=== PATIENT | male | born 1930 | race Asian ===

== ENCOUNTER 2018-03-14 15:30 | Inpatient (IN) | payer MEDICARE, MEDICAID ==
--- NOTE | 2018-03-14 16:43 | ED Physician Chart ---
ED Chief Complaint/HPI - Patient Information Date Seen:: 03/14/18 Time Seen:: 16:00 Chief Complaint:: anxiety agitation History of Present Illness:: 87 yr old for increased agitation for geropsych eval pt denies any complaints Allergies:: Allergies Allergy/AdvReac Type Severity Reaction Status Date / Time No Known Allergies Allergy Verified 03/14/18 16:23 Vitals:: Vital Signs - 8 hr 03/14/18 16:17 Temp 98.3 F HR 67 RR 16 BP 127/61 O2 Sat % 98 ED Review of Systems - Review of Systems General/Constitutional: No fever, No chills, No weight loss, No weakness, No diaphoresis, No edema, No loss of appetite Skin: No skin lesions, No rash, No bruising Head: No headache, No light-headedness Eyes: No loss of vision, No pain, No diplopia ENT: No earache, No nasal drainage, No sore throat, No tinnitus Neck: No neck pain, No swelling, No thyromegaly, No stiffness, No mass noted Cardio Vascular: No chest pain, No palpitations, No PND, No orthopnea, No edema Pulmonary: No SOB, No cough, No sputum, No wheezing GI: No nausea, No vomiting, No diarrhea, No pain, No melena, No hematochezia, No constipation, No hematemesis G/U: No dysuria, No frequency, No hematuria Musculoskeletal: No bone or joint pain, No back pain, No muscle pain Endocrine: No polyuria, No polydipsia Psychiatric: No prior psych history, No depression, No anxiety, No suicidal ideation Hematopoietic: No bruising, No lymphadenopathy Allergic/Immuno: No urticaria, No angioedema Neurological: No syncope, No focal symptoms, No weakness, No paresthesia, No headache, No seizure, No dizziness, No confusion, No vertigo ED Past Medical History - Past Medical History Past Medical History: No significant medical hx Family Medical History - Family Member Mother History Unknown: Yes ED Assessment - Assessment General Assessment: anxiety agitation ED Septic Shock - . Is Septic Shock (SBP<90, OR Lactate>4 mmol\L) present?: No - <6hrs of presentation: Vital Signs: Vital Signs - 8 hr 03/14/18 16:17 Temp 98.3 F HR 67 RR 16 BP 127/61 O2 Sat % 98 ED Reassessment (Disposition) - Diagnosis Diagnosis:: anxiety agitation - Patient Disposition Discharge/Transfer:: Acute Care w/in this hosp Transport Method:: Private Condition at Disposition:: Stable
[2018-03-14 16:57] LABS: % BASOPHILS 0.4 % (0.0-2.0); % EOSINOPHILS 0.8 % (0.0-5.0); % LYMPHOCYTES 15.1 % (20.0-50.0); % MONOCYTES 2.4 % (2.0-10.0); % NEUTROPHILS 81.3 % (40.0-80.0); EOSINOPHILE ABSOLUTE 0.1 Th/cmm (0.1-0.4); HEMOGLOBIN 13.5 gm/dL (12-16); MEAN CELL VOLUME 100.2 fl (80-99); MEAN CORPUSCULAR HEMOGLOBIN 33.8 pg (27.0-31.0); MEAN CORPUSCULAR HGB CONC 33.7 pg (28.0-36.0); MEAN PLATELET VOLUME 7.8 fl; MONOCYTE ABSOLUTE 0.2 Th/cmm (0.3-1.0); NEUTROPHILE ABSOLUTE 5.4 Th/cmm (1.8-8.0); PLATELET COUNT 214 Th/cmm (150-400); RED CELL DISTRIBUTION WIDTH 12.2 % (11.5-20.0); WHITE BLOOD COUNT 6.7 Th/cmm (4.8-10.8)
[2018-03-14 17:11] LABS: ALB/GLOB RATIO 1.6 (1.0-1.8); ALBUMIN 4.6 gm/dL (4.2-5.5); ALKALINE PHOSPHATASE 59 U/L (34-104); ANION GAP 12.8 (7.0-16.0); BILIRUBIN,TOTAL 0.5 mg/dL (0.3-1.0); BUN - UREA NITROGEN 25 mg/dL (7-25); CARBON DIOXIDE 27.1 mEq/L (21.0-31.0); CHLORIDE 99 mEq/L (98-107); CREATININE - SERUM 1.2 mg/dL (0.7-1.3); GLUCOSE 114 mg/dL (70-105); POTASSIUM SERUM 4.9 mEq/L (3.5-5.1); SGOT 16 U/L (13-39); SGPT/ALT 10 U/L (7-52); SODIUM SERUM 134 mEq/L (136-145); TOTAL PROTEIN,SERUM 7.5 gm/dL (6.0-8.3)
[2018-03-14 17:41] LABS: URINE SOURCE CLEAN C
[2018-03-14 17:45] LABS: URINE BILIRUBIN NEGATIVE (NEGATIVE); URINE BLOOD TRACE (NEGATIVE); URINE GLUCOSE (UA) NEGATIVE (NEGATIVE); URINE KETONE 15 mg/dL (NEGATIVE); URINE LEUKOCYTE ESTERASE NEGATIVE (NEGATIVE); URINE MICROSCOPIC INDICATED? YES; URINE NITRATE NEGATIVE (NEGATIVE); URINE PROTEIN NEGATIVE (NEGATIVE); URINE UROBILINOGEN 0.2 E.U./dL (0.2 - 1.0)
[2018-03-14 17:50] LABS: URINE CLARITY CLEAR (CLEAR); URINE COLOR YELLOW
[2018-03-14 17:58] LABS: URINE WBC 0-2 /hpf (0-5)
[2018-03-14 17:59] LABS: AMPHETAMINE URINE NEGATIVE (NEGATIVE); BARBITURATES URINE NEGATIVE (NEGATIVE); BENZODIAZEPINES QUAL URINE NEGATIVE (NEGATIVE); CANNABINOID THC NEGATIVE (NEGATIVE); COCAINE METABOLITE QUAL URINE NEGATIVE (NEGATIVE); METHADONE URINE NEGATIVE (NEGATIVE); METHAMPHETAMINES QUAL URINE NEGATIVE (NEGATIVE); OPIATES (MORPHINE) QUAL. URINE NEGATIVE (NEGATIVE); PHENCYCLIDINE (PCP) URINE NEGATIVE (NEGATIVE); TRICYCLICS (TCA) QUAL. URINE NEGATIVE (NEGATIVE); URINE BACTERIA OCCASIONAL /hpf (NONE SEEN); URINE EPITHELIAL CELLS OCCASIONAL /lpf (FEW)
[2018-03-14 18:07] VITALS: BP 147/77
[2018-03-14] MEDS ORDERED: Magnesium Hydroxide (MOM) 30 mL UDC PO PRN (21:49)
--- NOTE | 2018-03-15 03:29 | Psychiatric Evaluation ---
DATE OF SERVICE: 03/14/2018 IDENTIFYING DATA: The patient is an 87-year-old male, resident of [facility]. Information obtained by interviewing the patient as well as reviewing the admission papers and it is reliable. JUSTIFICATION FOR HOSPITALIZATION: The patient is admitted here on a voluntary basis in view of his acute agitation and impulsive behavior. CHIEF COMPLAINT: "I don't know what they are talking about." HISTORY OF PRESENT ILLNESS: This is the first psychiatric hospitalization to [facility] for this patient who is reported to have been agitated at the halfway facility and could not be contained and the patient has to be admitted over here for stabilization. The patient has been at [facility] and has been getting easily agitated and aggressive towards the staff as well as other patients and could not be contained at a lower level of care. Review of the chart indicated that the patient has been on Ativan as p.r.n. doses and the patient is not able to contract for safety. At the time of the admission, the patient is getting easily frustrated, stating that he has told the same story again and he does not want to get more information. Sleep and appetite prior to the hospitalization are reported to be poor. PAST PSYCHIATRIC HISTORY: None. MEDICAL HISTORY: Physical examination is requested to be done by Dr. Moe. SUBSTANCE ABUSE HISTORY: None. PHYSICAL OR SEXUAL ABUSE HISTORY: None. LEGAL PROBLEMS: None at this time. MENTAL STATUS EXAMINATION: The patient is an 87-year-old, looking his stated age, wheelchair bound, superficially cooperative. Eye contact is poor. Mood is noted to be irritable. Affect is constricted. The patient is getting easily frustrated. The patient has paranoia, but denies any command hallucinations. The patient has short-term memory deficits and long-term memory seems to be fair so far. Insight and judgment are noted to be very much impaired. Impulse control is noted to be poor. Coping skills are noted to be very poor. The patient is reported to have been having a difficulty to cope with the stress and has been getting out of control. The patient is not able to contract for safety. The patient's attention span and concentration are noted to be poor at this time. The patient's behavior is likely danger to others. 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 AXIS II: None. AXIS III: As per Dr. Moe. IMMEDIATE TREATMENT PLAN: The patient is going to be observed on inpatient unit, provided with supportive psychotherapy. The patient is going to be closely monitored. Once stabilized, the patient is going to be discharged back to the [facility] or [facility] for further followup. JOB# [id number]
[2018-03-15] MEDS: Multivitamin Tab PO SCH (08:36)
--- NOTE | 2018-03-15 09:33 | History & Physical ---
ADMIT DATE: 03/14/2018 CHIEF COMPLAINT: Agitation. HISTORY OF PRESENT ILLNESS: This is an 87-year-old male who was admitted through the Emergency Room [facility] from a senior living facility due to increase in agitation to staffs. REVIEW OF SYSTEMS: GENERAL: This is an 87-year-old male that appears as stated. Denies any weakness. Denies any weight loss. HEENT: Denies any headache. Denies dizziness. EYES: Denies eye pain. Denies blurring of vision. NECK: Denies neck pain. Denies nuchal rigidity. CHEST: Denies chest pain. Denies palpitation. PULMONARY: Denies coughing. Denies shortness of breath. GASTROINTESTINAL: Denies abdominal pain. Denies constipation. Denies diarrhea. MUSCULOSKELETAL: Denies muscle pain. Denies joint pain. SOCIAL HISTORY: The patient denies nicotine use, alcohol use, or illicit drug use. The patient lives in a senior living facility prior to hospitalization. PAST MEDICAL HISTORY: Includes osteoarthritis and hypertension. PAST SURGICAL HISTORY: Unremarkable. FAMILY HISTORY: Unremarkable. PSYCHIATRIC HISTORY: Includes dementia. PHYSICAL EXAMINATION: VITAL SIGNS: Temperature 97.7, heart rate of 79, respirations 20, blood pressure 114/72, and 97% on room air. HEENT: Head is atraumatic, normocephalic. Eyes: Bilateral conjunctivae are clear. Bilateral pupils are equally round and reactive. NECK: Supple. No JVD. CARDIOVASCULAR: S1 and S2, without murmur. PULMONARY: Clear to auscultation. GASTROINTESTINAL: Soft and nontender without guarding. Positive bowel sounds. MUSCULOSKELETAL: No clubbing. No cyanosis noted. ASSESSMENT: 1. Dementia. 2. Hypertension. 3. Osteoarthritis. 4. Anxiety. PLAN: We will admit the patient to Psychiatric Unit. We will follow up with psychiatrist to monitor the patient's condition and behavior. Treatment plans were discussed with the patient's nurse. Treatment plans were discussed with Dr. Moe. JOB# [id number]
--- NOTE | 2018-03-15 10:24 | Progress Notes ---
DATE: 03/15/2018 SUBJECTIVE: Staff was spoken to. The patient is interviewed. Mood is noted to be irritable. Affect is constricted. Insight and judgment at this time are noted to be still impaired. Impulse control is noted to be limited. Coping skills are noted to be limited. The patient has been placed on the Seroquel 12.5 mg at bedtime for his agitation and paranoia. The patient has been able to tolerate. No side effects to medications are noted at this time. ASSESSMENT: The patient is still grossly psychotic, impulsive and paranoid. PLAN: To continue the patient with the supportive therapy and followup. JOB# [id number]
--- NOTE | 2018-03-15 23:26 | Consultation ---
DATE OF CONSULTATION: 03/15/2018 REFERRING PHYSICIAN: Yolette Cuadra M.D. TYPE OF CONSULTATION: Psychology. HISTORY OF PRESENT ILLNESS: The patient is an 87-year-old male. The patient is a resident of [facility]. The following is by review of the medical record and by patient's self-report. The patient is being admitted due to acute agitation and poor impulse control. According to staff at the patient's nursing home facility the patient had become agitated and unredirectable as well as aggressive towards the staff and other residents. The patient denied this behavior and presented as confused and disoriented. The patient denied any suicidal ideation or homicidal ideation, plan or intention. PAST MEDICAL HISTORY: Please see history and physical by Dr. Moe. PAST PSYCHIATRIC HISTORY: Records are unavailable at the time of this clinical interview. SUBSTANCE ABUSE HISTORY: The patient did not answer this question. PSYCHOSOCIAL HISTORY: The patient did not answer questions about occupational or educational history or scientology affiliation. The patient did not answer questions about history of physical or sexual abuse or current legal problems. The patient did not answer questions about marital status, family relationships or support system. The patient was selectively mute during the clinical interview. MENTAL STATUS EXAMINATION: The patient appears to be his stated age. The patient's attitude is superficially cooperative. Eye contact is poor. Speech is slow and delayed. Mood is irritable. Affect is constricted. At times during the clinical interview, the patient would get easily frustrated. Thought process shows to be confused. The patient denied any suicidal ideation, plan or intention. There is possible paranoid ideation present. The patient's behavior has been fairly redirectable on the unit. Impulse control is poor. Concentration is poor. The patient did not participate in the memory assessment. The patient did not participate in any interpretation of proverbs. Sensorium is alert and oriented to self and place only. Insight is impaired. Judgment is impaired. DIAGNOSTIC IMPRESSION: AXIS I: 1. Psychotic disorder, not otherwise specified. 2. Dementia with behavioral disturbance. AXIS II: Deferred. AXIS III: Per Dr. Moe. TREATMENT PLAN: The patient has been seen by Dr. Cuadra for psychiatric evaluation and for the management of the patient's psychotropic medications. We will provide supportive psychotherapy to include reality orientation, reality differentiation and integration. We will provide the patient daily opportunities to verbally contract for safety to include no self-harm and no harm to others. We will encourage the patient to be able to demonstrate emotional and self-regulation and to verbalize his concerns versus acting out. We will provide coping strategies for phase of life issues. We will provide limit setting as well as cognitive behavioral redirection. We will provide motivational enhancement for the patient to become compliant and stay compliant with all aspects of his care and treatment. Thank you Dr. Cuadra for this consult and the opportunity to participate in this patient's care. JOB# [id number] KEVIN
[2018-03-16] MEDS: Multivitamin Tab PO SCH (08:42)
--- NOTE | 2018-03-16 19:31 | Progress Notes ---
DATE: 03/16/2018 PSYCHIATRIC PROGRESS NOTE SUBJECTIVE: Staff was spoken to. The patient is interviewed and noted to be irritable. Affect is constricted. Continues to be paranoid, agitation is a concern with the patient and impulsivity is another problem. No side effects to the medications are noted at this time. ASSESSMENT: The patient is still impulsive. PLAN: To continue the patient with the supportive therapy and encouraged the patient to verbalize the concerns rather than to act out. [facility]# [id number]
[2018-03-17] MEDS: Multivitamin Tab PO SCH (09:51)
--- NOTE | 2018-03-17 16:04 | General Progress Note ---
Subjective - Review of Systems Events since last encounter: in no distress still confused Objective - Results Result Diagrams: 03/14/18 16:50 03/14/18 16:50 Recent Labs: Laboratory Last Values WBC 6.7 Th/cmm (4.8-10.8) 03/14/18 16:50 RBC 4.00 Mil/cmm (3.80-5.80) 03/14/18 16:50 Hgb 13.5 gm/dL (12-16) 03/14/18 16:50 Hct 40.0 % (41.0-60) L 03/14/18 16:50 MCV 100.2 fl (80-99) H 03/14/18 16:50 MCH 33.8 pg (27.0-31.0) H 03/14/18 16:50 MCHC Differential 33.7 pg (28.0-36.0) 03/14/18 16:50 RDW 12.2 % (11.5-20.0) 03/14/18 16:50 Plt Count 214 Th/cmm (150-400) 03/14/18 16:50 MPV 7.8 fl 03/14/18 16:50 Neutrophils % 81.3 % (40.0-80.0) H 03/14/18 16:50 Lymphocytes % 15.1 % (20.0-50.0) L 03/14/18 16:50 Monocytes % 2.4 % (2.0-10.0) 03/14/18 16:50 Eosinophils % 0.8 % (0.0-5.0) 03/14/18 16:50 Basophils % 0.4 % (0.0-2.0) 03/14/18 16:50 Sodium 134 mEq/L (136-145) L 03/14/18 16:50 Potassium 4.9 mEq/L (3.5-5.1) 03/14/18 16:50 Chloride 99 mEq/L (98-107) 03/14/18 16:50 Carbon Dioxide 27.1 mEq/L (21.0-31.0) 03/14/18 16:50 Anion Gap 12.8 (7.0-16.0) 03/14/18 16:50 BUN 25 mg/dL (7-25) 03/14/18 16:50 Creatinine 1.2 mg/dL (0.7-1.3) 03/14/18 16:50 Est GFR ( Amer) TNP 03/14/18 16:50 Est GFR (Non-Af Amer) TNP 03/14/18 16:50 BUN/Creatinine Ratio 20.8 03/14/18 16:50 Glucose 114 mg/dL (70-105) H 03/14/18 16:50 Calcium 10.0 mg/dL (8.6-10.3) 03/14/18 16:50 Total Bilirubin 0.5 mg/dL (0.3-1.0) 03/14/18 16:50 AST 16 U/L (13-39) 03/14/18 16:50 ALT 10 U/L (7-52) 03/14/18 16:50 Alkaline Phosphatase 59 U/L (34-104) 03/14/18 16:50 Total Protein 7.5 gm/dL (6.0-8.3) 03/14/18 16:50 Albumin 4.6 gm/dL (4.2-5.5) 03/14/18 16:50 Globulin 2.9 gm/dL 03/14/18 16:50 Albumin/Globulin Ratio 1.6 (1.0-1.8) 03/14/18 16:50 Urine Source CLEAN C 03/14/18 17:01 Urine Color YELLOW 03/14/18 17:01 Urine Clarity CLEAR (CLEAR) 03/14/18 17:01 Urine pH 6.0 (4.6 - 8.0) 03/14/18 17:01 Ur Specific Ryan 1.025 (1.005-1.030) 03/14/18 17:01 Urine Protein NEGATIVE mg/dL (NEGATIVE) 03/14/18 17:01 Urine Glucose (UA) NEGATIVE mg/dL (NEGATIVE) 03/14/18 17:01 Urine Ketones 15 mg/dL (NEGATIVE) H 03/14/18 17:01 Urine Blood TRACE (NEGATIVE) 03/14/18 17:01 Urine Nitrate NEGATIVE (NEGATIVE) 03/14/18 17:01 Urine Bilirubin NEGATIVE (NEGATIVE) 03/14/18 17:01 Urine Urobilinogen 0.2 E.U./dL (0.2 - 1.0) 03/14/18 17:01 Ur Leukocyte Esterase NEGATIVE (NEGATIVE) 03/14/18 17:01 Urine RBC 2-5 /hpf (0-5) H 03/14/18 17:01 Urine WBC 0-2 /hpf (0-5) 03/14/18 17:01 Ur Epithelial Cells OCCASIONAL /lpf (FEW) 03/14/18 17:01 Urine Bacteria OCCASIONAL /hpf (NONE SEEN) 03/14/18 17:01 Urine Opiates Screen NEGATIVE (NEGATIVE) 03/14/18 17:01 Urine Methadone Screen NEGATIVE (NEGATIVE) 03/14/18 17:01 Ur Barbiturates Screen NEGATIVE (NEGATIVE) 03/14/18 17:01 Ur Tricyclics Screen NEGATIVE (NEGATIVE) 03/14/18 17:01 Ur Phencyclidine Scrn NEGATIVE (NEGATIVE) 03/14/18 17:01 Amphetamines Screen NEGATIVE (NEGATIVE) 03/14/18 17:01 U Methamphetamines Scrn NEGATIVE (NEGATIVE) 03/14/18 17:01 U Benzodiazepines Scrn NEGATIVE (NEGATIVE) 03/14/18 17:01 U Cocaine Metab Screen NEGATIVE (NEGATIVE) 03/14/18 17:01 U Cannabinoids Screen NEGATIVE (NEGATIVE) 03/14/18 17:01 - Physical Exam Vitals and I&O: Vital Signs Temp 98.7 F 03/17/18 15:40 Pulse 72 03/17/18 15:40 Resp 20 03/17/18 15:40 BP 92/54 03/17/18 15:40 Pulse Ox 98 03/17/18 15:40 Intake & Output 03/16/18 03/17/18 03/17/18 18:59 06:59 18:59 Intake Total 800 300 Balance 800 300 Intake: Oral 800 300 Other: # Voids 3 1 # Bowel Movements 1 0 Active Medications: Current Medications Acetaminophen (Tylenol) 325 mg PO Q6HR PRN PRN Reason: Pain (Mild) Stop: 05/13/18 21:48 Amlodipine Besylate (Norvasc) 5 mg PO DAILY MARA Stop: 05/14/18 08:59 Last Admin: 03/17/18 09:51 Dose: 5 mg Docusate Sodium (Colace) 100 mg PO BID MARA Stop: 05/14/18 08:59 Last Admin: 03/17/18 09:52 Dose: 100 mg Donepezil HCl (Aricept) 5 mg PO HS MARA Stop: 05/13/18 20:59 Last Admin: 03/16/18 20:40 Dose: 5 mg Lisinopril (Zestril) 5 mg PO DAILY MARA Stop: 05/14/18 08:59 Last Admin: 03/17/18 09:51 Dose: 5 mg Lorazepam (Ativan) 0.5 mg PO Q4HR PRN; Protocol PRN Reason: Anxiety Stop: 04/13/18 21:43 Last Admin: 03/17/18 09:51 Dose: 0.5 mg Magnesium Hydroxide (Milk Of Magnesia) 30 ml PO Q6HR PRN PRN Reason: Constipation Stop: 05/13/18 21:48 Memantine (Namenda) 5 mg PO HS MARA Stop: 05/13/18 20:59 Last Admin: 03/16/18 20:40 Dose: 5 mg Multivitamins/Vitamin C (Theragran) 1 tab PO DAILY MARA Stop: 05/14/18 08:59 Last Admin: 03/17/18 09:51 Dose: 1 tab Quetiapine Fumarate (Seroquel) 12.5 mg PO HS MARA; Protocol Stop: 05/14/18 20:59 Last Admin: 03/16/18 20:52 Dose: Not Given Zolpidem Tartrate (Ambien) 5 mg PO HSMR1 PRN PRN Reason: Insomnia Stop: 05/13/18 21:43
--- NOTE | 2018-03-18 02:21 | Progress Notes ---
DATE: 03/17/2018 SUBJECTIVE: Staff was spoken to. The patient is interviewed. Mood is noted to be irritable. Affect is constricted. The patient still has paranoid delusions. He denies any current hallucinations. Insight and judgment are noted to be impaired. The patient is complaining of insomnia. No side effects to the medications are noted. ASSESSMENT: The patient is still grossly psychotic and impulsive. PLAN: To continue the patient with the supportive therapy, increase the dose of Seroquel to 25 mg and follow the patient with supportive therapy. JOB# [id number]
[2018-03-18] MEDS: Multivitamin Tab PO SCH (18:17)
--- NOTE | 2018-03-19 00:38 | Progress Notes ---
DATE: 03/18/2018 Staff was spoken to. The patient is interviewed. Mood is noted to be anxious. The patient is isolated and withdrawn. Coping skill are noted to be still poor. Insight and judgment also noted to be limited. The patient is currently on Seroquel, which is being given at 25 mg at bedtime. The patient has been able to tolerate, no side effects to the medications are noted. The patient's short- and long-term memory noted to be poor. ASSESSMENT: The patient is demented and paranoid. PLAN: To continue the patient with supportive therapy and followup. JOB# [id number]
[2018-03-19] MEDS: Multivitamin Tab PO SCH (08:25)
--- NOTE | 2018-03-19 09:02 | General Progress Note ---
Subjective - Review of Systems Events since last encounter: patient awake paranoid,anxious ]confused Objective - Results Result Diagrams: 03/14/18 16:50 03/14/18 16:50 Recent Labs: Laboratory Last Values WBC 6.7 Th/cmm (4.8-10.8) 03/14/18 16:50 RBC 4.00 Mil/cmm (3.80-5.80) 03/14/18 16:50 Hgb 13.5 gm/dL (12-16) 03/14/18 16:50 Hct 40.0 % (41.0-60) L 03/14/18 16:50 MCV 100.2 fl (80-99) H 03/14/18 16:50 MCH 33.8 pg (27.0-31.0) H 03/14/18 16:50 MCHC Differential 33.7 pg (28.0-36.0) 03/14/18 16:50 RDW 12.2 % (11.5-20.0) 03/14/18 16:50 Plt Count 214 Th/cmm (150-400) 03/14/18 16:50 MPV 7.8 fl 03/14/18 16:50 Neutrophils % 81.3 % (40.0-80.0) H 03/14/18 16:50 Lymphocytes % 15.1 % (20.0-50.0) L 03/14/18 16:50 Monocytes % 2.4 % (2.0-10.0) 03/14/18 16:50 Eosinophils % 0.8 % (0.0-5.0) 03/14/18 16:50 Basophils % 0.4 % (0.0-2.0) 03/14/18 16:50 Sodium 134 mEq/L (136-145) L 03/14/18 16:50 Potassium 4.9 mEq/L (3.5-5.1) 03/14/18 16:50 Chloride 99 mEq/L (98-107) 03/14/18 16:50 Carbon Dioxide 27.1 mEq/L (21.0-31.0) 03/14/18 16:50 Anion Gap 12.8 (7.0-16.0) 03/14/18 16:50 BUN 25 mg/dL (7-25) 03/14/18 16:50 Creatinine 1.2 mg/dL (0.7-1.3) 03/14/18 16:50 Est GFR ( Amer) TNP 03/14/18 16:50 Est GFR (Non-Af Amer) TNP 03/14/18 16:50 BUN/Creatinine Ratio 20.8 03/14/18 16:50 Glucose 114 mg/dL (70-105) H 03/14/18 16:50 Calcium 10.0 mg/dL (8.6-10.3) 03/14/18 16:50 Total Bilirubin 0.5 mg/dL (0.3-1.0) 03/14/18 16:50 AST 16 U/L (13-39) 03/14/18 16:50 ALT 10 U/L (7-52) 03/14/18 16:50 Alkaline Phosphatase 59 U/L (34-104) 03/14/18 16:50 Total Protein 7.5 gm/dL (6.0-8.3) 03/14/18 16:50 Albumin 4.6 gm/dL (4.2-5.5) 03/14/18 16:50 Globulin 2.9 gm/dL 03/14/18 16:50 Albumin/Globulin Ratio 1.6 (1.0-1.8) 03/14/18 16:50 Urine Source CLEAN C 03/14/18 17:01 Urine Color YELLOW 03/14/18 17:01 Urine Clarity CLEAR (CLEAR) 03/14/18 17:01 Urine pH 6.0 (4.6 - 8.0) 03/14/18 17:01 Ur Specific [place] 1.025 (1.005-1.030) 03/14/18 17:01 Urine Protein NEGATIVE mg/dL (NEGATIVE) 03/14/18 17:01 Urine Glucose (UA) NEGATIVE mg/dL (NEGATIVE) 03/14/18 17:01 Urine Ketones 15 mg/dL (NEGATIVE) H 03/14/18 17:01 Urine Blood TRACE (NEGATIVE) 03/14/18 17:01 Urine Nitrate NEGATIVE (NEGATIVE) 03/14/18 17:01 Urine Bilirubin NEGATIVE (NEGATIVE) 03/14/18 17:01 Urine Urobilinogen 0.2 E.U./dL (0.2 - 1.0) 03/14/18 17:01 Ur Leukocyte Esterase NEGATIVE (NEGATIVE) 03/14/18 17:01 Urine RBC 2-5 /hpf (0-5) H 03/14/18 17:01 Urine WBC 0-2 /hpf (0-5) 03/14/18 17:01 Ur Epithelial Cells OCCASIONAL /lpf (FEW) 03/14/18 17:01 Urine Bacteria OCCASIONAL /hpf (NONE SEEN) 03/14/18 17:01 Urine Opiates Screen NEGATIVE (NEGATIVE) 03/14/18 17:01 Urine Methadone Screen NEGATIVE (NEGATIVE) 03/14/18 17:01 Ur Barbiturates Screen NEGATIVE (NEGATIVE) 03/14/18 17:01 Ur Tricyclics Screen NEGATIVE (NEGATIVE) 03/14/18 17:01 Ur Phencyclidine Scrn NEGATIVE (NEGATIVE) 03/14/18 17:01 Amphetamines Screen NEGATIVE (NEGATIVE) 03/14/18 17:01 U Methamphetamines Scrn NEGATIVE (NEGATIVE) 03/14/18 17:01 U Benzodiazepines Scrn NEGATIVE (NEGATIVE) 03/14/18 17:01 U Cocaine Metab Screen NEGATIVE (NEGATIVE) 03/14/18 17:01 U Cannabinoids Screen NEGATIVE (NEGATIVE) 03/14/18 17:01 - Physical Exam Vitals and I&O: Vital Signs Temp 97.6 F 03/19/18 06:37 Pulse 65 03/19/18 08:26 Resp 19 03/19/18 06:37 BP 123/66 03/19/18 08:26 Pulse Ox 97 03/19/18 06:37 Intake & Output 03/18/18 03/19/18 03/19/18 18:59 06:59 18:59 Intake Total 1350 360 Balance 1350 360 Weight (lbs) 56.699 kg Intake: Oral 1350 360 Other: # Voids 3 2 # Bowel Movements 0 0 Weight Source Bedscale Active Medications: Current Medications Acetaminophen (Tylenol) 325 mg PO Q6HR PRN PRN Reason: Pain (Mild) Stop: 05/13/18 21:48 Amlodipine Besylate (Norvasc) 5 mg PO DAILY [facility] Stop: 05/14/18 08:59 Last Admin: 03/19/18 08:25 Dose: 5 mg Docusate Sodium (Colace) 100 mg PO BID [facility] Stop: 05/14/18 08:59 Last Admin: 03/19/18 08:25 Dose: 100 mg Donepezil HCl (Aricept) 5 mg PO HS [facility] Stop: 05/13/18 20:59 Last Admin: 03/18/18 20:45 Dose: 5 mg Lisinopril (Zestril) 5 mg PO DAILY [facility] Stop: 05/14/18 08:59 Last Admin: 03/19/18 08:26 Dose: 5 mg Lorazepam (Ativan) 0.5 mg PO Q4HR PRN; Protocol PRN Reason: Anxiety Stop: 04/13/18 21:43 Last Admin: 03/18/18 17:54 Dose: 0.5 mg Magnesium Hydroxide (Milk Of Magnesia) 30 ml PO Q6HR PRN PRN Reason: Constipation Stop: 05/13/18 21:48 Memantine (Namenda) 5 mg PO [facility] Stop: 05/13/18 20:59 Last Admin: 03/18/18 20:45 Dose: 5 mg Multivitamins/Vitamin C (Theragran) 1 tab PO DAILY [facility] Stop: 05/14/18 08:59 Last Admin: 03/19/18 08:25 Dose: 1 tab Quetiapine Fumarate (Seroquel) 25 mg PO HS [facility]; Protocol Stop: 05/16/18 20:59 Last Admin: 03/18/18 20:45 Dose: 25 mg Zolpidem Tartrate (Ambien) 5 mg PO HSMR1 PRN PRN Reason: Insomnia Stop: 05/13/18 21:43 Nutritional Asmnt/Malnutr-PDOC - Dietary Evaluation Malnutrition Findings (Please click <Entered> for more info): Nutritional Asmnt/Malnutrition Start: 03/18/18 13: 17 Text: Status: Complete Freq: Protocol: Document 03/18/18 13:17 LCHENG (Rec: 03/18/18 13:23 [email or web address] [email or web address]) Nutritional Asmnt/Malnutrition Patient General Information Nutritional Screening Moderate Risk Diagnosis psychosis Pertinent Medical Hx/Surgical Hx OA, HTN Subjective Information Pt seen sitting in dining room watching TV. Pt stated he has been eating well, no question of concern about current diet /meals. Per EMR, PO intake 75% of meals. Current Diet Order/ Nutrition Support ANNE MARIE Pertinent Medications colace, theragran, serqoeul Pertinent Labs 03/14 Na 134, Glucose 114 Nutritional Hx/Data Height 1.78 m Height (Calculated Centimeters) 177.8 Current Weight (lbs) 56.699 kg Weight (Calculated Kilograms) 56.7 Weight (Calculated Grams) 06329.0 [place] Body Weight 166 Body Mass Index (BMI) 17.9 Weight Status Underweight GI Symptoms GI Symptoms None Last BM 8/5 Difficult in: None Skin Integrity/Comment: intact Current %PO Good (75-100%) Estimated Nutritional Goals BEE in Kcals: Using Current wt Calories/Kcals/Kg 30-35 Kcals Calculated 7409-6660 Protein: Using Current wt Protein g/k-1.2 Protein Calculated 59-70 Fluid: ml 1710-1994ml (1ml/kcal) Nutritional Problem No current Nutrition Prob Problem N/A Malnutrition Alert Is there a minimum of two criteria No selected? Query Text:Check all the applicable criteria. A minimum of two criteria are recommended for diagnosis of either severe or non-severe malnutrition. Malnutrition Related to Morbid Obesity Malnutrition related to morbid obesity No Intervention/Recommendation Comments 1. Continue with ANNE MARIE diet as ordered. 2. Monitor PO intake, wt, labs and skin integrity 3. F/U as low risk in 7 days, 03/25 Expected Outcomes/Goals Expected Outcomes/Goals 1. PO intake to meet at least 75% of nutritional needs. 2. Wt stability, skin to remain intact, labs to approach WNL.
--- NOTE | 2018-03-20 01:57 | Progress Notes ---
DATE: 03/19/2018 SUBJECTIVE: Staff was spoken to. The patient is interviewed. Mood is noted to be irritable. Affect is constricted. Coping skills are noted to be poor. The patient is still getting frustrated easily. The patient has no insight into his illness. The patient is still demented and impulsive. The patient is currently on 25 mg of Seroquel and has been able to tolerate the medication. ASSESSMENT: The patient is still disruptive and impulsive. PLAN: To continue the patient with supportive therapy. I encouraged the patient to verbalize the concerns rather than to act out. JOB# [id number]
[2018-03-20] MEDS: Multivitamin Tab PO SCH (09:11)
--- NOTE | 2018-03-20 15:55 | General Progress Note ---
Subjective - Review of Systems Subjective: pt. is irritable and demented, reports no pain Objective - Results Result Diagrams: 03/14/18 16:50 03/14/18 16:50 Recent Labs: Laboratory Last Values WBC 6.7 Th/cmm (4.8-10.8) 03/14/18 16:50 RBC 4.00 Mil/cmm (3.80-5.80) 03/14/18 16:50 Hgb 13.5 gm/dL (12-16) 03/14/18 16:50 Hct 40.0 % (41.0-60) L 03/14/18 16:50 MCV 100.2 fl (80-99) H 03/14/18 16:50 MCH 33.8 pg (27.0-31.0) H 03/14/18 16:50 MCHC Differential 33.7 pg (28.0-36.0) 03/14/18 16:50 RDW 12.2 % (11.5-20.0) 03/14/18 16:50 Plt Count 214 Th/cmm (150-400) 03/14/18 16:50 MPV 7.8 fl 03/14/18 16:50 Neutrophils % 81.3 % (40.0-80.0) H 03/14/18 16:50 Lymphocytes % 15.1 % (20.0-50.0) L 03/14/18 16:50 Monocytes % 2.4 % (2.0-10.0) 03/14/18 16:50 Eosinophils % 0.8 % (0.0-5.0) 03/14/18 16:50 Basophils % 0.4 % (0.0-2.0) 03/14/18 16:50 Sodium 134 mEq/L (136-145) L 03/14/18 16:50 Potassium 4.9 mEq/L (3.5-5.1) 03/14/18 16:50 Chloride 99 mEq/L (98-107) 03/14/18 16:50 Carbon Dioxide 27.1 mEq/L (21.0-31.0) 03/14/18 16:50 Anion Gap 12.8 (7.0-16.0) 03/14/18 16:50 BUN 25 mg/dL (7-25) 03/14/18 16:50 Creatinine 1.2 mg/dL (0.7-1.3) 03/14/18 16:50 Est GFR ( Amer) TNP 03/14/18 16:50 Est GFR (Non-Af Amer) TNP 03/14/18 16:50 BUN/Creatinine Ratio 20.8 03/14/18 16:50 Glucose 114 mg/dL (70-105) H 03/14/18 16:50 Calcium 10.0 mg/dL (8.6-10.3) 03/14/18 16:50 Total Bilirubin 0.5 mg/dL (0.3-1.0) 03/14/18 16:50 AST 16 U/L (13-39) 03/14/18 16:50 ALT 10 U/L (7-52) 03/14/18 16:50 Alkaline Phosphatase 59 U/L (34-104) 03/14/18 16:50 Total Protein 7.5 gm/dL (6.0-8.3) 03/14/18 16:50 Albumin 4.6 gm/dL (4.2-5.5) 03/14/18 16:50 Globulin 2.9 gm/dL 03/14/18 16:50 Albumin/Globulin Ratio 1.6 (1.0-1.8) 03/14/18 16:50 Urine Source CLEAN C 03/14/18 17:01 Urine Color YELLOW 03/14/18 17:01 Urine Clarity CLEAR (CLEAR) 03/14/18 17:01 Urine pH 6.0 (4.6 - 8.0) 03/14/18 17:01 Ur Specific [place] 1.025 (1.005-1.030) 03/14/18 17:01 Urine Protein NEGATIVE mg/dL (NEGATIVE) 03/14/18 17:01 Urine Glucose (UA) NEGATIVE mg/dL (NEGATIVE) 03/14/18 17:01 Urine Ketones 15 mg/dL (NEGATIVE) H 03/14/18 17:01 Urine Blood TRACE (NEGATIVE) 03/14/18 17:01 Urine Nitrate NEGATIVE (NEGATIVE) 03/14/18 17:01 Urine Bilirubin NEGATIVE (NEGATIVE) 03/14/18 17:01 Urine Urobilinogen 0.2 E.U./dL (0.2 - 1.0) 03/14/18 17:01 Ur Leukocyte Esterase NEGATIVE (NEGATIVE) 03/14/18 17:01 Urine RBC 2-5 /hpf (0-5) H 03/14/18 17:01 Urine WBC 0-2 /hpf (0-5) 03/14/18 17:01 Ur Epithelial Cells OCCASIONAL /lpf (FEW) 03/14/18 17:01 Urine Bacteria OCCASIONAL /hpf (NONE SEEN) 03/14/18 17:01 Urine Opiates Screen NEGATIVE (NEGATIVE) 03/14/18 17:01 Urine Methadone Screen NEGATIVE (NEGATIVE) 03/14/18 17:01 Ur Barbiturates Screen NEGATIVE (NEGATIVE) 03/14/18 17:01 Ur Tricyclics Screen NEGATIVE (NEGATIVE) 03/14/18 17:01 Ur Phencyclidine Scrn NEGATIVE (NEGATIVE) 03/14/18 17:01 Amphetamines Screen NEGATIVE (NEGATIVE) 03/14/18 17:01 U Methamphetamines Scrn NEGATIVE (NEGATIVE) 03/14/18 17:01 U Benzodiazepines Scrn NEGATIVE (NEGATIVE) 03/14/18 17:01 U Cocaine Metab Screen NEGATIVE (NEGATIVE) 03/14/18 17:01 U Cannabinoids Screen NEGATIVE (NEGATIVE) 03/14/18 17:01 - Physical Exam Vitals and I&O: Vital Signs Temp 97.4 F 03/19/18 20:14 Pulse 69 03/20/18 09:11 Resp 19 03/19/18 20:14 BP 110/60 03/20/18 09:11 Pulse Ox 96 03/19/18 20:14 Intake & Output 03/19/18 03/20/18 03/20/18 18:59 06:59 18:59 Intake Total 1200 Balance 1200 Intake: Oral 1200 Other: # Bowel Movements 1 Active Medications: Current Medications Acetaminophen (Tylenol) 325 mg PO Q6HR PRN PRN Reason: Pain (Mild) Stop: 05/13/18 21:48 Amlodipine Besylate (Norvasc) 5 mg PO DAILY [facility] Stop: 05/14/18 08:59 Last Admin: 03/20/18 09:11 Dose: Not Given Docusate Sodium (Colace) 100 mg PO BID [facility] Stop: 05/14/18 08:59 Last Admin: 03/20/18 09:11 Dose: 100 mg Donepezil HCl (Aricept) 5 mg PO HS [facility] Stop: 05/13/18 20:59 Last Admin: 03/19/18 21:51 Dose: 5 mg Lisinopril (Zestril) 5 mg PO DAILY [facility] Stop: 05/14/18 08:59 Last Admin: 03/20/18 09:09 Dose: Not Given Lorazepam (Ativan) 0.5 mg PO Q4HR PRN; Protocol PRN Reason: Anxiety Stop: 04/13/18 21:43 Last Admin: 03/18/18 17:54 Dose: 0.5 mg Magnesium Hydroxide (Milk Of Magnesia) 30 ml PO Q6HR PRN PRN Reason: Constipation Stop: 05/13/18 21:48 Memantine (Namenda) 5 mg PO HS [facility] Stop: 05/13/18 20:59 Last Admin: 03/19/18 21:52 Dose: 5 mg Multivitamins/Vitamin C (Theragran) 1 tab PO DAILY [facility] Stop: 05/14/18 08:59 Last Admin: 03/20/18 09:11 Dose: 1 tab Quetiapine Fumarate (Seroquel) 25 mg PO HS [facility]; Protocol Stop: 05/16/18 20:59 Last Admin: 03/19/18 21:52 Dose: 25 mg Zolpidem Tartrate (Ambien) 5 mg PO HSMR1 PRN PRN Reason: Insomnia Stop: 05/13/18 21:43 General: Alert, Oriented x3, No acute distress HEENT: Atraumatic, PERRLA, EOMI Neck: Supple Cardiovascular: Regular rate Lungs: Clear to auscultation Abdomen: Bowel sounds Assessment/Plan - Plan Plan: cpm will monitor Nutritional Asmnt/Malnutr-PDOC - Dietary Evaluation Malnutrition Findings (Please click <Entered> for more info): Nutritional Asmnt/Malnutrition Start: 03/18/18 13: 17 Text: Status: Complete Freq: Protocol: Document 03/18/18 13:17 PRAKASH (Rec: 03/18/18 13:23 PRAKASH [email or web address]) Nutritional Asmnt/Malnutrition Patient General Information Nutritional Screening Moderate Risk Diagnosis psychosis Pertinent Medical Hx/Surgical Hx OA, HTN Subjective Information Pt seen sitting in dining room watching TV. Pt stated he has been eating well, no question of concern about current diet /meals. Per EMR, PO intake 75% of meals. Current Diet Order/ Nutrition Support ANNE MARIE Pertinent Medications colace, theragran, serqoeul Pertinent Labs 03/14 Na 134, Glucose 114 Nutritional Hx/Data Height 1.78 m Height (Calculated Centimeters) 177.8 Current Weight (lbs) 56.699 kg Weight (Calculated Kilograms) 56.7 Weight (Calculated Grams) 96181.0 [place] Body Weight 166 Body Mass Index (BMI) 17.9 Weight Status Underweight GI Symptoms GI Symptoms None Last BM 03/16 Difficult in: None Skin Integrity/Comment: intact Current %PO Good (75-100%) Estimated Nutritional Goals BEE in Kcals: Using Current wt Calories/Kcals/Kg 30-35 Kcals Calculated 7145-9560 Protein: Using Current wt Protein g/k-1.2 Protein Calculated 59-70 Fluid: ml 1710-1994ml (1ml/kcal) Nutritional Problem No current Nutrition Prob Problem N/A Malnutrition Alert Is there a minimum of two criteria No selected? Query Text:Check all the applicable criteria. A minimum of two criteria are recommended for diagnosis of either severe or non-severe malnutrition. Malnutrition Related to Morbid Obesity Malnutrition related to morbid obesity No Intervention/Recommendation Comments 1. Continue with ANNE MARIE diet as ordered. 2. Monitor PO intake, wt, labs and skin integrity 3. F/U as low risk in 7 days, 03/25 Expected Outcomes/Goals Expected Outcomes/Goals 1. PO intake to meet at least 75% of nutritional needs. 2. Wt stability, skin to remain intact, labs to approach WNL.
--- NOTE | 2018-03-21 00:35 | Progress Notes ---
DATE: 03/20/2018 SUBJECTIVE: Staff was spoken to. The patient is interviewed. Mood is noted to be irritable. Affect is constricted. Insight and judgment at this time are noted to be still impaired. Impulse control is noted to be limited. Paranoia is noted, but the patient denies any command hallucinations. The patient is still having problem with the memory and agitation is becoming towards the end of the day. ASSESSMENT: The patient is still paranoid and demented. PLAN: To continue the patient with the supportive therapy and followup. JOB# [id number]
[2018-03-21] MEDS: Multivitamin Tab PO SCH (09:58)
--- NOTE | 2018-03-21 23:53 | Progress Notes ---
DATE: 03/21/2018 PSYCHIATRIC PROGRESS NOTE SUBJECTIVE: Staff was spoken to. The patient is interviewed. Mood is noted to be irritable. Affect is constricted. The patient has paranoia, but denies any command hallucinations. The patient's short and long-term memory are noted to be poor. The patient is pacing on the unit. ASSESSMENT: The patient is still psychotic and impulsive. PLAN: To continue the patient with the supportive therapy and followup. JOB# [id number]
[2018-03-22] MEDS: Multivitamin Tab PO SCH (09:28)
--- NOTE | 2018-03-22 22:56 | Progress Notes ---
DATE: 03/22/2018 SUBJECTIVE: The patient was seen in his room. The patient appears to be asleep but easily arousable with poor concentration, appears to be guarded. Otherwise, the patient is in no acute distress. OBJECTIVE: VITAL SIGNS: Temperature 98.1, heart rate 68, blood pressure 108/57, respirations of 19, and 98% on room air. HEENT: Head is atraumatic and normocephalic. Eyes: Bilateral conjunctivae are clear. Bilateral pupils are equally round and reactive. NECK: Supple. No JVD. CARDIOVASCULAR: S1 and S2, without murmur. PULMONARY: Clear to auscultation. GASTROINTESTINAL: Soft and nontender without guarding. Positive bowel sounds. MUSCULOSKELETAL: No clubbing. No cyanosis noted. ASSESSMENT: 1. Dementia. 2. Hypertension. 3. Osteoarthritis. PLAN: We will continue to keep the patient inpatient Psychiatric unit and will follow up with a psychiatrist to monitor the patient's condition and behavior. Treatment plans were discussed with the patient's nurse. Treatment plans were discussed with Dr. Moe. JOB# [id number]
--- NOTE | 2018-03-23 01:29 | Progress Notes ---
DATE: 03/22/2018 SUBJECTIVE: Staff was spoken to. The patient is interviewed. Mood is noted to be irritable. Affect is constricted. The patient has been having difficult time to cope with the stress, continues to be paranoid. The patient has been denying any command hallucinations. No side effects to the medications are noted. ASSESSMENT: The patient is still paranoid and impulsive. PLAN: To continue the patient with the current medications and followup. JOB# [id number]
[2018-03-23] MEDS: Multivitamin Tab PO SCH (09:48)
--- NOTE | 2018-03-23 11:35 | General Progress Note ---
Subjective - Review of Systems Events since last encounter: 87 yr old male is still paranoid impulsive, denies cp ,sob Subjective: pt. is irritable and demented, reports no pain Objective - Results Result Diagrams: 03/14/18 16:50 03/14/18 16:50 Recent Labs: Laboratory Last Values WBC 6.7 Th/cmm (4.8-10.8) 03/14/18 16:50 RBC 4.00 Mil/cmm (3.80-5.80) 03/14/18 16:50 Hgb 13.5 gm/dL (12-16) 03/14/18 16:50 Hct 40.0 % (41.0-60) L 03/14/18 16:50 MCV 100.2 fl (80-99) H 03/14/18 16:50 MCH 33.8 pg (27.0-31.0) H 03/14/18 16:50 MCHC Differential 33.7 pg (28.0-36.0) 03/14/18 16:50 RDW 12.2 % (11.5-20.0) 03/14/18 16:50 Plt Count 214 Th/cmm (150-400) 03/14/18 16:50 MPV 7.8 fl 03/14/18 16:50 Neutrophils % 81.3 % (40.0-80.0) H 03/14/18 16:50 Lymphocytes % 15.1 % (20.0-50.0) L 03/14/18 16:50 Monocytes % 2.4 % (2.0-10.0) 03/14/18 16:50 Eosinophils % 0.8 % (0.0-5.0) 03/14/18 16:50 Basophils % 0.4 % (0.0-2.0) 03/14/18 16:50 Sodium 134 mEq/L (136-145) L 03/14/18 16:50 Potassium 4.9 mEq/L (3.5-5.1) 03/14/18 16:50 Chloride 99 mEq/L (98-107) 03/14/18 16:50 Carbon Dioxide 27.1 mEq/L (21.0-31.0) 03/14/18 16:50 Anion Gap 12.8 (7.0-16.0) 03/14/18 16:50 BUN 25 mg/dL (7-25) 03/14/18 16:50 Creatinine 1.2 mg/dL (0.7-1.3) 03/14/18 16:50 Est GFR ( Amer) TNP 03/14/18 16:50 Est GFR (Non-Af Amer) TNP 03/14/18 16:50 BUN/Creatinine Ratio 20.8 03/14/18 16:50 Glucose 114 mg/dL (70-105) H 03/14/18 16:50 Calcium 10.0 mg/dL (8.6-10.3) 03/14/18 16:50 Total Bilirubin 0.5 mg/dL (0.3-1.0) 03/14/18 16:50 AST 16 U/L (13-39) 03/14/18 16:50 ALT 10 U/L (7-52) 03/14/18 16:50 Alkaline Phosphatase 59 U/L (34-104) 03/14/18 16:50 Total Protein 7.5 gm/dL (6.0-8.3) 03/14/18 16:50 Albumin 4.6 gm/dL (4.2-5.5) 03/14/18 16:50 Globulin 2.9 gm/dL 03/14/18 16:50 Albumin/Globulin Ratio 1.6 (1.0-1.8) 03/14/18 16:50 Urine Source CLEAN C 03/14/18 17:01 Urine Color YELLOW 03/14/18 17:01 Urine Clarity CLEAR (CLEAR) 03/14/18 17:01 Urine pH 6.0 (4.6 - 8.0) 03/14/18 17:01 Ur Specific [place] 1.025 (1.005-1.030) 03/14/18 17:01 Urine Protein NEGATIVE mg/dL (NEGATIVE) 03/14/18 17:01 Urine Glucose (UA) NEGATIVE mg/dL (NEGATIVE) 03/14/18 17:01 Urine Ketones 15 mg/dL (NEGATIVE) H 03/14/18 17:01 Urine Blood TRACE (NEGATIVE) 03/14/18 17:01 Urine Nitrate NEGATIVE (NEGATIVE) 03/14/18 17:01 Urine Bilirubin NEGATIVE (NEGATIVE) 03/14/18 17:01 Urine Urobilinogen 0.2 E.U./dL (0.2 - 1.0) 03/14/18 17:01 Ur Leukocyte Esterase NEGATIVE (NEGATIVE) 03/14/18 17:01 Urine RBC 2-5 /hpf (0-5) H 03/14/18 17:01 Urine WBC 0-2 /hpf (0-5) 03/14/18 17:01 Ur Epithelial Cells OCCASIONAL /lpf (FEW) 03/14/18 17:01 Urine Bacteria OCCASIONAL /hpf (NONE SEEN) 03/14/18 17:01 Urine Opiates Screen NEGATIVE (NEGATIVE) 03/14/18 17:01 Urine Methadone Screen NEGATIVE (NEGATIVE) 03/14/18 17:01 Ur Barbiturates Screen NEGATIVE (NEGATIVE) 03/14/18 17:01 Ur Tricyclics Screen NEGATIVE (NEGATIVE) 03/14/18 17:01 Ur Phencyclidine Scrn NEGATIVE (NEGATIVE) 03/14/18 17:01 Amphetamines Screen NEGATIVE (NEGATIVE) 03/14/18 17:01 U Methamphetamines Scrn NEGATIVE (NEGATIVE) 03/14/18 17:01 U Benzodiazepines Scrn NEGATIVE (NEGATIVE) 03/14/18 17:01 U Cocaine Metab Screen NEGATIVE (NEGATIVE) 03/14/18 17:01 U Cannabinoids Screen NEGATIVE (NEGATIVE) 03/14/18 17:01 - Physical Exam Vitals and I&O: Vital Signs Temp 97.3 F 03/23/18 06:56 Pulse 74 03/23/18 09:48 Resp 20 03/23/18 06:56 BP 149/71 03/23/18 09:48 Pulse Ox 98 03/23/18 06:56 Intake & Output 03/22/18 03/23/18 03/23/18 18:59 06:59 18:59 Intake Total 1800 120 Balance 1800 120 Intake: Oral 1800 120 Other: # Voids 4 3 # Bowel Movements 1 Active Medications: Current Medications Acetaminophen (Tylenol) 325 mg PO Q6HR PRN PRN Reason: Pain (Mild) Stop: 05/13/18 21:48 Amlodipine Besylate (Norvasc) 5 mg PO DAILY [facility] Stop: 05/14/18 08:59 Last Admin: 03/23/18 09:48 Dose: 5 mg Docusate Sodium (Colace) 100 mg PO BID [facility] Stop: 05/14/18 08:59 Last Admin: 03/23/18 09:49 Dose: 100 mg Donepezil HCl (Aricept) 5 mg PO HS [facility] Stop: 05/13/18 20:59 Last Admin: 03/22/18 20:57 Dose: 5 mg Lisinopril (Zestril) 5 mg PO DAILY [facility] Stop: 05/14/18 08:59 Last Admin: 03/23/18 09:48 Dose: 5 mg Magnesium Hydroxide (Milk Of Magnesia) 30 ml PO Q6HR PRN PRN Reason: Constipation Stop: 05/13/18 21:48 Memantine (Namenda) 5 mg PO HS [facility] Stop: 05/13/18 20:59 Last Admin: 03/22/18 20:57 Dose: 5 mg Multivitamins/Vitamin C (Theragran) 1 tab PO DAILY [facility] Stop: 05/14/18 08:59 Last Admin: 03/23/18 09:48 Dose: 1 tab Quetiapine Fumarate (Seroquel) 25 mg PO HS [facility]; Protocol Stop: 05/16/18 20:59 Last Admin: 03/22/18 20:57 Dose: 25 mg General: Alert, Oriented x3, No acute distress HEENT: Atraumatic, PERRLA, EOMI Neck: Supple Cardiovascular: Regular rate Lungs: Clear to auscultation Abdomen: Bowel sounds Assessment/Plan - Plan Plan: cpm will monitor Nutritional Asmnt/Malnutr-PDOC - Dietary Evaluation Malnutrition Findings (Please click <Entered> for more info): Nutritional Asmnt/Malnutrition Start: 03/18/18 13: 17 Text: Status: Complete Freq: Protocol: Document 03/18/18 13:17 LCHENG (Rec: 03/18/18 13:23 [email or web address]) Nutritional Asmnt/Malnutrition Patient General Information Nutritional Screening Moderate Risk Diagnosis psychosis Pertinent Medical Hx/Surgical Hx OA, HTN Subjective Information Pt seen sitting in dining room watching TV. Pt stated he has been eating well, no question of concern about current diet /meals. Per EMR, PO intake 75% of meals. Current Diet Order/ Nutrition Support ANNE MARIE Pertinent Medications colace, theragran, serqoeul Pertinent Labs 03/14 Na 134, Glucose 114 Nutritional Hx/Data Height 1.78 m Height (Calculated Centimeters) 177.8 Current Weight (lbs) 56.699 kg Weight (Calculated Kilograms) 56.7 Weight (Calculated Grams) 05226.0 [place] Body Weight 166 Body Mass Index (BMI) 17.9 Weight Status Underweight GI Symptoms GI Symptoms None Last BM 8/5 Difficult in: None Skin Integrity/Comment: intact Current %PO Good (75-100%) Estimated Nutritional Goals BEE in Kcals: Using Current wt Calories/Kcals/Kg 30-35 Kcals Calculated 7429-6705 Protein: Using Current wt Protein g/k-1.2 Protein Calculated 59-70 Fluid: ml 1710-1994ml (1ml/kcal) Nutritional Problem No current Nutrition Prob Problem N/A Malnutrition Alert Is there a minimum of two criteria No selected? Query Text:Check all the applicable criteria. A minimum of two criteria are recommended for diagnosis of either severe or non-severe malnutrition. Malnutrition Related to Morbid Obesity Malnutrition related to morbid obesity No Intervention/Recommendation Comments 1. Continue with ANNE MARIE diet as ordered. 2. Monitor PO intake, wt, labs and skin integrity 3. F/U as low risk in 7 days, 03/25 Expected Outcomes/Goals Expected Outcomes/Goals 1. PO intake to meet at least 75% of nutritional needs. 2. Wt stability, skin to remain intact, labs to approach WNL.
--- NOTE | 2018-03-23 13:15 | Progress Notes ---
DATE: 03/23/2018 SUBJECTIVE: Staff was spoken to. The patient is interviewed. Mood is noted to be less irritable. Affect is appropriate. The patient is currently on Seroquel, which is being given at 25 mg at bedtime and the patient's confusion is still concerns, but agitation seems to be coming down. No side effects to the medications are noted. The patient agitation is becoming an issue towards the end of the day. ASSESSMENT: The patient is still psychotic. PLAN: To continue the patient with the current medications and followup. JOB# [id number]
[2018-03-24] MEDS: Multivitamin Tab PO SCH (09:36)
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
[2018-03-25] MEDS: Multivitamin Tab PO SCH (08:11)
--- NOTE | 2018-03-25 20:46 | Progress Notes ---
DATE: 03/25/2018 PSYCHIATRIC PROGRESS NOTE SUBJECTIVE: Staff was spoken to. The patient is interviewed. Mood is noted to be irritable. Affect is constricted. He states that he needs to go back to [place]. Coping skills are noted to be very poor. The patient is pacing on the unit. ASSESSMENT: The patient is still confused and demented. PLAN: To continue the patient with supportive therapy. Encouraged the patient to verbalize the concerns rather than to act out. [facility]# [id number]
== END 2018-03-25 15:24 | DRG 885 ==
LOC: ER 15:30 → GERO 17:51
PROVIDERS: ADMIT Psychiatry & Neurology Psychiatry; ATTEND Psychiatry & Neurology Psychiatry
DX: F23 Brief psychotic disorder (principal); F03.91 Unspecified dementia, unspecified severity, with behavioral disturbance; I10 Essential (primary) hypertension; M19.90 Unspecified osteoarthritis, unspecified site; F41.9 Anxiety disorder, unspecified
CPT/HCPCS: 36415-UA; 80053-TC; 80307; 81001-TC; 85025-TC; 93005; Z7610

== ENCOUNTER 2019-01-16 20:22 | Inpatient (IN) | payer MEDICARE, OTHER ==
--- NOTE | 2019-01-16 20:55 | ED Physician Chart ---
ED Chief Complaint/HPI - Patient Information Date Seen:: 01/16/19 Time Seen:: 20:50 Chief Complaint:: GENERALIZED WEAKNESS History of Present Illness:: 88 YR OLD MALE FROM [facility] FOR GENERALIZED WEAKNESS Allergies:: Allergies Allergy/AdvReac Type Severity Reaction Status Date / Time No Known Allergies Allergy Verified 03/14/18 16:23 Vitals:: Vital Signs - 8 hr 01/16/19 20:38 BP 140/70 ED Review of Systems - Review of Systems General/Constitutional: No fever, No chills Skin: No skin lesions Head: No headache Eyes: No loss of vision ENT: No earache Neck: No neck pain Cardio Vascular: No chest pain Pulmonary: No SOB GI: No nausea Musculoskeletal: No bone or joint pain Endocrine: No polyuria Psychiatric: No anxiety Hematopoietic: No bruising Allergic/Immuno: No urticaria Neurological: No syncope Family Medical History - Family Member Mother History Unknown: Yes ED Septic Shock - . Is Septic Shock (SBP<90, OR Lactate>4 mmol\L) present?: No - <6hrs of presentation: Vital Signs: Vital Signs - 8 hr 01/16/19 20:38 BP 140/70 ED Reassessment (Disposition) - Reassessment Reassessment:: GENERALIZED WEAKNESS - Diagnosis Diagnosis:: ABOVE - Aftercare/Follow up Instructions Aftercare/Follow-Up Instructions:: Counseled pt regarding lab results/diagnosis & need follow up - Patient Disposition Discharge/Transfer:: Home Admitted to:: Med/Surg Condition at Disposition:: Stable
[2019-01-16 21:22] LABS: % BASOPHILS 0.4 % (0.0-2.0); % EOSINOPHILS 2.6 % (0.0-5.0); % MONOCYTES 9.5 % (2.0-10.0); % NEUTROPHILS 64.5 % (40.0-80.0); EOSINOPHILE ABSOLUTE 0.1 Th/cmm (0.1-0.4); HEMATOCRIT 33.1 % (41.0-60); HEMOGLOBIN 11.2 gm/dL (12-16); LYMPHOCYTE ABSOLUTE 1.2 Th/cmm (1.5-3.0); MEAN CELL VOLUME 98.1 fl (80-99); MEAN CORPUSCULAR HEMOGLOBIN 33.3 pg (27.0-31.0); MEAN CORPUSCULAR HGB CONC 33.9 pg (28.0-36.0); MONOCYTE ABSOLUTE 0.5 Th/cmm (0.3-1.0); NEUTROPHILE ABSOLUTE 3.6 Th/cmm (1.8-8.0); PLATELET COUNT 190 Th/cmm (150-400); RED BLOOD COUNT 3.37 Mil/cmm (3.80-5.80); RED CELL DISTRIBUTION WIDTH 12.4 % (11.5-20.0); WHITE BLOOD COUNT 5.4 Th/cmm (4.8-10.8)
[2019-01-16 21:33] LABS: URINE SOURCE CLEAN C
[2019-01-16 21:36] LABS: URINE BILIRUBIN NEGATIVE (NEGATIVE); URINE BLOOD NEGATIVE (NEGATIVE); URINE GLUCOSE (UA) NEGATIVE (NEGATIVE); URINE KETONE NEGATIVE (NEGATIVE); URINE LEUKOCYTE ESTERASE NEGATIVE (NEGATIVE); URINE NITRATE NEGATIVE (NEGATIVE); URINE PH 5.5 (4.6 - 8.0); URINE PROTEIN NEGATIVE (NEGATIVE); URINE UROBILINOGEN 0.2 E.U./dL (0.2 - 1.0)
[2019-01-16 21:45] LABS: URINE CLARITY CLEAR (CLEAR); URINE COLOR YELLOW; URINE MICROSCOPIC INDICATED? YES
[2019-01-16 21:46] LABS: URINE RBC NONE SEEN /hpf (0-5)
[2019-01-16 21:47] LABS: URINE BACTERIA FEW /hpf (NONE SEEN); URINE EPITHELIAL CELLS FEW /lpf (FEW); URINE WBC 0-2 /hpf (0-5)
[2019-01-16 22:12] LABS: ALB/GLOB RATIO 1.6 (1.0-1.8); ALBUMIN 3.8 gm/dL (4.2-5.5); ALKALINE PHOSPHATASE 61 U/L (34-104); ANION GAP 12.9 (7.0-16.0); BILIRUBIN,TOTAL 0.3 mg/dL (0.3-1.0); BUN - UREA NITROGEN 19 mg/dL (7-25); CALCIUM SERUM 9.1 mg/dL (8.6-10.3); CARBON DIOXIDE 25.2 mEq/L (21.0-31.0); CHLORIDE 105 mEq/L (98-107); GLUCOSE 125 mg/dL (70-105); POTASSIUM SERUM 4.1 mEq/L (3.5-5.1); SGOT 13 U/L (13-39); SGPT/ALT 7 U/L (7-52); SODIUM SERUM 139 mEq/L (136-145); TOTAL PROTEIN,SERUM 6.2 gm/dL (6.0-8.3)
[2019-01-17 07:30] LABS: ANION GAP 8.9 (7.0-16.0); BUN - UREA NITROGEN 16 mg/dL (7-25); CARBON DIOXIDE 28.2 mEq/L (21.0-31.0); CHLORIDE 105 mEq/L (98-107); CHOLESTEROL 136 mg/dL (<200); GLUCOSE 117 mg/dL (70-105); HDL -HIGH DENSITY LIPOPROTEIN 54 mg/dL (23-92); POTASSIUM SERUM 4.1 mEq/L (3.5-5.1); SODIUM SERUM 138 mEq/L (136-145); TRIGLYCERIDES 48 mg/dL (<150)
[2019-01-17 07:41] LABS: HEMATOCRIT 34.4 % (41.0-60); HEMOGLOBIN 11.8 gm/dL (12-16); MEAN CELL VOLUME 99.2 fl (80-99); MEAN CORPUSCULAR HEMOGLOBIN 33.9 pg (27.0-31.0); MEAN CORPUSCULAR HGB CONC 34.1 pg (28.0-36.0); PLATELET COUNT 171 Th/cmm (150-400); RED BLOOD COUNT 3.47 Mil/cmm (3.80-5.80); RED CELL DISTRIBUTION WIDTH 12.5 % (11.5-20.0); WHITE BLOOD COUNT 4.7 Th/cmm (4.8-10.8)
[2019-01-17 08:54] LABS: BAND NEUTROPHILE 0 % (0-10); NEUTROPHILS 73 % (40-80)
[2019-01-17 08:55] LABS: BASOPHIL 0 % (0-3); EOSINOPHIL 1 % (0-5); LYMPHOCYTE 20 % (20-50); MONOCYTE 6 % (2-10); PLATELET ESTIMATE ADEQUATE (NORMAL)
[2019-01-17 09:21] VITALS: BP 147/62
[2019-01-17] MEDS ORDERED: Acetaminophen 500 MG TAB PO PRN (12:42)
[2019-01-17] MEDS ORDERED: Magnesium Hydroxide (MOM) 30 mL UDC PO PRN (12:42)
[2019-01-17] MEDS: Multivitamin Tab PO SCH (13:14)
[2019-01-17] MEDS ORDERED: VTE Chemical Prophylaxis Screen/Admission MC PRN (16:12)
--- NOTE | 2019-01-17 16:43 | Diagnostic Imaging Report ---
CHEST X-RAY: AP view INDICATION: Shortness of breath COMPARISON: None FINDINGS: There is elevation of the right hemidiaphragm. Chronic lung changes are noted. There may be small calcified granulomas of the lung apices. There is no focal consolidation or pleural effusions The heart is normal in size. Atherosclerosis is noted. Degenerative changes of the spine are noted. IMPRESSION: Chronic lung changes with no focal consolidation identified. Possible small calcified granulomas of the lung apices Atherosclerotic vascular disease.
--- NOTE | 2019-01-17 16:44 | History & Physical ---
ADMIT DATE: 01/17/2019 CHIEF COMPLAINT: Weakness. HISTORY OF PRESENT ILLNESS: This is an 88-year-old male who was originally from a residential facility, transferred to [facility] Emergency Room for evaluation of generalized weakness. The patient is a poor historian due to medical condition. Workup was done in the Emergency Room for which the patient was not stable for discharge. Hence, the patient was admitted to telemetry for closer monitoring. REVIEW OF SYSTEMS: GENERAL: He is an 88-year-old male. Positive weakness. No fever. HEENT: No headache. No dizziness. EYES: No eye pain or blurring vision. NECK: No neck pain or nuchal rigidity. CHEST: No chest pain. No palpitation. PULMONARY: No coughing, no shortness of breath. GASTROINTESTINAL: No abdominal pain, no constipation or diarrhea. MUSCULOSKELETAL: No joint pain. No muscle pain. SOCIAL HISTORY: The patient lives in a residential facility prior to hospitalization. PAST MEDICAL HISTORY: Includes hypertension, osteoarthritis. PAST SURGICAL HISTORY: Unremarkable. FAMILY HISTORY: Unremarkable. PSYCHIATRIC HISTORY: Includes dementia. PHYSICAL EXAMINATION: VITAL SIGNS: Temperature is 97.7, heart rate 60, blood pressure 102/59, respirations 16, 98% on room air. GENERAL: This is an 88-year-old male that appears as stated in no acute distress. HEENT: Head is atraumatic and normocephalic. Eyes: Bilateral conjunctivae are clear. Bilateral pupils equal, round, reactive. NECK: Supple. No JVD. CARDIOVASCULAR: S1 and S2, without murmur. PULMONARY: Clear to auscultation. GASTROINTESTINAL: Soft and nontender without guarding. Positive bowel sounds. MUSCULOSKELETAL: No clubbing. No cyanosis noted. ASSESSMENT: 1. Generalized weakness. 2. Hypertension. 3. Dementia. PLAN: We will admit the patient to telemetry. We will follow up with a neurologist and also consult with a psychiatrist. We will do medication reconciliation accordingly. We will put the patient on fall precaution and aspiration precaution. Treatment plans were discussed with the patient's nurse. Treatment plans were discussed with Dr. Moe. JOB# [id number]
[2019-01-17] MEDS: Heparin Sod 5,000Units/ML 5,000 UNITS/ML VIAL SUBQ SCH (20:16)
--- NOTE | 2019-01-18 08:54 | Consultation ---
DATE OF CONSULTATION: 01/18/2019 HISTORY OF PRESENT ILLNESS: An 88-year-old male coming from a [facility], transferred to [facility] with generalized weakness, not the best historian, but AO to name, place, year, month, not situation. He is not sure what city he is in, but he does know he is in the hospital. He denies depression. 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 The patient is confused about why he is in the hospital. He also does not for example know his address, keeps talking about his family coming back from [place]. PAST PSYCHIATRIC HISTORY: Unclear, concerns for dementia given his age and presentation, no suicide history. SOCIAL HISTORY: The patient states he was born in [facility], , no children. No known drugs or alcohol. The patient is unaware of his address, stating he lives in [place]. MENTAL STATUS EXAMINATION: Stated age. Fair eye contact. Speech within normal limits. Mood "very good." Affect constricted. Thought processes were engaged, but disoriented. No SI, no HI. No overt psychotic symptoms. Insight and judgment diminished. PROVISIONAL DIAGNOSIS: Dementia. MEDICAL: Please see full H and P. RECOMMENDATIONS AND PLAN: The patient relatively stable from a psychiatric perspective, no behavioral disturbances per nursing staff, he is generally calm. We will continue to monitor and follow up as needed. JOB# [id number]
[2019-01-18] MEDS: Multivitamin Tab PO SCH (09:00)
[2019-01-18] MEDS: Heparin Sod 5,000Units/ML 5,000 UNITS/ML VIAL SUBQ SCH ×2 (09:11→20:13)
--- NOTE | 2019-01-18 15:38 | Internal Medicine Prog Note ---
Internal Medicine Subjective - Subjective Service Date: 01/18/19 Patient seen and examined:: with staff Patient is:: awake, verbal Per staff patient has:: no adverse event, no episodes of fall Internal Medicine Objective - Results Result Diagrams: 01/17/19 07:05 01/17/19 07:05 Recent Labs: Laboratory Last Values WBC 4.7 Th/cmm (4.8-10.8) L 01/17/19 07:05 RBC 3.47 Mil/cmm (3.80-5.80) L 01/17/19 07:05 Hgb 11.8 gm/dL (12-16) L 01/17/19 07:05 Hct 34.4 % (41.0-60) L 01/17/19 07:05 MCV 99.2 fl (80-99) H 01/17/19 07:05 MCH 33.9 pg (27.0-31.0) H 01/17/19 07:05 MCHC Differential 34.1 pg (28.0-36.0) 01/17/19 07:05 RDW 12.5 % (11.5-20.0) 01/17/19 07:05 Plt Count 171 Th/cmm (150-400) 01/17/19 07:05 MPV 7.9 fl 01/17/19 07:05 Add Manual Diff YES 01/17/19 07:05 Neutrophils % 64.5 % (40.0-80.0) 01/16/19 21:10 Band Neutrophils % 0 % (0-10) 01/17/19 07:05 Lymphocytes % 23.0 % (20.0-50.0) 01/16/19 21:10 Monocytes % 9.5 % (2.0-10.0) 01/16/19 21:10 Eosinophils % 2.6 % (0.0-5.0) 01/16/19 21:10 Basophils % 0.4 % (0.0-2.0) 01/16/19 21:10 Neutrophils (Manual) 73 % (40-80) 01/17/19 07:05 Lymphocytes 20 % (20-50) 01/17/19 07:05 Monocytes 6 % (2-10) 01/17/19 07:05 Eosinophils 1 % (0-5) 01/17/19 07:05 Basophils 0 % (0-3) 01/17/19 07:05 Platelet Estimate ADEQUATE (NORMAL) 01/17/19 07:05 Sodium 138 mEq/L (136-145) 01/17/19 07:05 Potassium 4.1 mEq/L (3.5-5.1) 01/17/19 07:05 Chloride 105 mEq/L (98-107) 01/17/19 07:05 Carbon Dioxide 28.2 mEq/L (21.0-31.0) 01/17/19 07:05 Anion Gap 8.9 (7.0-16.0) 01/17/19 07:05 BUN 16 mg/dL (7-25) 01/17/19 07:05 Creatinine 1.0 mg/dL (0.7-1.3) 01/17/19 07:05 Est GFR ( Amer) TNP 01/17/19 07:05 Est GFR (Non-Af Amer) TNP 01/17/19 07:05 BUN/Creatinine Ratio 16.0 01/17/19 07:05 Glucose 117 mg/dL (70-105) H 01/17/19 07:05 POC Glucose 91 MG/DL (70 - 105) 01/17/19 17:14 Whole Bld Lactic Acid 1.13 mmol/L (0.60-1.99) 01/16/19 21:10 Calcium 9.0 mg/dL (8.6-10.3) 01/17/19 07:05 Total Bilirubin 0.3 mg/dL (0.3-1.0) 01/16/19 21:10 AST 13 U/L (13-39) 01/16/19 21:10 ALT 7 U/L (7-52) 01/16/19 21:10 Alkaline Phosphatase 61 U/L (34-104) 01/16/19 21:10 Troponin I 0.02 ng/mL (0.01-0.05) 01/17/19 15:01 Total Protein 6.2 gm/dL (6.0-8.3) 01/16/19 21:10 Albumin 3.8 gm/dL (4.2-5.5) L 01/16/19 21:10 Globulin 2.4 gm/dL 01/16/19 21:10 Albumin/Globulin Ratio 1.6 (1.0-1.8) 01/16/19 21:10 Triglycerides 48 mg/dL (<150) 01/17/19 07:05 Cholesterol 136 mg/dL (<200) 01/17/19 07:05 LDL Cholesterol Direct 65 mg/dL (75-193) L 01/17/19 07:05 HDL Cholesterol 54 mg/dL (23-92) 01/17/19 07:05 TSH 0.62 uIU/ml (0.34-5.60) 01/16/19 21:10 Urine Source CLEAN C 01/16/19 20:40 Urine Color YELLOW 01/16/19 20:40 Urine Clarity CLEAR (CLEAR) 01/16/19 20:40 Urine pH 5.5 (4.6 - 8.0) 01/16/19 20:40 Ur Specific [place] 1.015 (1.005-1.030) 01/16/19 20:40 Urine Protein NEGATIVE mg/dL (NEGATIVE) 01/16/19 20:40 Urine Glucose (UA) NEGATIVE mg/dL (NEGATIVE) 01/16/19 20:40 Urine Ketones NEGATIVE mg/dL (NEGATIVE) 01/16/19 20:40 Urine Blood NEGATIVE (NEGATIVE) 01/16/19 20:40 Urine Nitrate NEGATIVE (NEGATIVE) 01/16/19 20:40 Urine Bilirubin NEGATIVE (NEGATIVE) 01/16/19 20:40 Urine Urobilinogen 0.2 E.U./dL (0.2 - 1.0) 01/16/19 20:40 Ur Leukocyte Esterase NEGATIVE (NEGATIVE) 01/16/19 20:40 Urine RBC NONE SEEN /hpf (0-5) 01/16/19 20:40 Urine WBC 0-2 /hpf (0-5) 01/16/19 20:40 Ur Epithelial Cells FEW /lpf (FEW) 01/16/19 20:40 Urine Bacteria FEW /hpf (NONE SEEN) 01/16/19 20:40 Urine Mucus FEW /lpf (FEW) 01/16/19 20:40 - Physical Exam Vitals and I&O: Vital Signs Temp 97.2 F 01/18/19 15:23 Pulse 57 01/18/19 15:23 Resp 18 01/18/19 15:23 BP 95/49 01/18/19 15:23 Pulse Ox 97 01/18/19 15:23 Intake & Output 01/17/19 01/18/19 01/18/19 18:59 06:59 18:59 Intake Total 1150 250 Output Total 250 Balance 900 250 Weight (lbs) 131 lb 122 lb 122 lb Intake: Oral 1150 250 Output: Urine 250 Other: # Voids 1 2 # Bowel Movements 2 1 Stool Characteristics Formed Weight Source Bedscale Estimated Estimated Active Medications: Current Medications Acetaminophen (Tylenol) 650 mg PO Q6HR PRN PRN Reason: Pain (Mild) Stop: 03/18/19 12:41 Amlodipine Besylate (Norvasc) 5 mg PO DAILY [facility] Stop: 03/18/19 12:44 Last Admin: 01/18/19 09:00 Dose: 5 mg Ascorbic Acid (Vitamin C) 500 mg PO DAILY [facility] Stop: 03/18/19 12:44 Last Admin: 01/18/19 09:00 Dose: 500 mg Docusate Sodium (Colace) 100 mg PO BID [facility] Stop: 03/18/19 16:59 Last Admin: 01/18/19 09:00 Dose: 100 mg Donepezil HCl (Aricept) 5 mg PO HS [facility] Stop: 03/18/19 20:59 Last Admin: 01/17/19 20:16 Dose: 5 mg Heparin Sodium (Porcine) (Heparin) 5,000 units SUBQ Q12H [facility] Stop: 03/18/19 20:59 Last Admin: 01/18/19 09:11 Dose: 5,000 units Lisinopril (Zestril) 5 mg PO DAILY [facility] Stop: 03/18/19 12:44 Last Admin: 01/18/19 09:00 Dose: 5 mg Magnesium Hydroxide (Milk Of Magnesia) 30 ml PO Q6HR PRN PRN Reason: Constipation Stop: 03/18/19 12:41 Memantine (Namenda) 5 mg PO HS [facility] Stop: 03/18/19 20:59 Last Admin: 01/17/19 20:16 Dose: 5 mg Miscellaneous (Vte Chemical Prophylaxis Screen/ Admission) 1 ea [facility] PRN PRN PRN Reason: PROTOCOL Stop: 03/18/19 16:11 Multivitamins/Vitamin C (Theragran) 1 tab PO DAILY [facility] Stop: 03/18/19 12:44 Last Admin: 01/18/19 09:00 Dose: 1 tab General: weak HEENT: NC/AT Neck: Supple, No JVD Lungs: CTAB Cardiovascular: RRR Abdomen: soft, non-tender Extremities: clear Neurological: no change Internal Medicine Assmt/Plan - Assessment Assessment: Generalized weakness HTN Dementia - Plan Plan: Continue to VS Continue current treatments. Continue collaboration with consulting specialist, nursing team and interdisciplinary team. Fall Precaution. Consider transferring to [facility] when appropriate.
[2019-01-19] MEDS: Multivitamin Tab PO SCH (08:45)
[2019-01-19] MEDS: Heparin Sod 5,000Units/ML 5,000 UNITS/ML VIAL SUBQ SCH ×2 (08:46→21:48)
--- NOTE | 2019-01-19 14:27 | Internal Medicine Prog Note ---
Internal Medicine Subjective - Subjective Service Date: 01/19/19 Patient seen and examined:: with staff Patient is:: awake, verbal, interactive, ambulating Per staff patient has:: no adverse event, no episodes of fall Internal Medicine Objective - Results Result Diagrams: 01/17/19 07:05 01/17/19 07:05 Recent Labs: Laboratory Last Values WBC 4.7 Th/cmm (4.8-10.8) L 01/17/19 07:05 RBC 3.47 Mil/cmm (3.80-5.80) L 01/17/19 07:05 Hgb 11.8 gm/dL (12-16) L 01/17/19 07:05 Hct 34.4 % (41.0-60) L 01/17/19 07:05 MCV 99.2 fl (80-99) H 01/17/19 07:05 MCH 33.9 pg (27.0-31.0) H 01/17/19 07:05 MCHC Differential 34.1 pg (28.0-36.0) 01/17/19 07:05 RDW 12.5 % (11.5-20.0) 01/17/19 07:05 Plt Count 171 Th/cmm (150-400) 01/17/19 07:05 MPV 7.9 fl 01/17/19 07:05 Add Manual Diff YES 01/17/19 07:05 Neutrophils % 64.5 % (40.0-80.0) 01/16/19 21:10 Band Neutrophils % 0 % (0-10) 01/17/19 07:05 Lymphocytes % 23.0 % (20.0-50.0) 01/16/19 21:10 Monocytes % 9.5 % (2.0-10.0) 01/16/19 21:10 Eosinophils % 2.6 % (0.0-5.0) 01/16/19 21:10 Basophils % 0.4 % (0.0-2.0) 01/16/19 21:10 Neutrophils (Manual) 73 % (40-80) 01/17/19 07:05 Lymphocytes 20 % (20-50) 01/17/19 07:05 Monocytes 6 % (2-10) 01/17/19 07:05 Eosinophils 1 % (0-5) 01/17/19 07:05 Basophils 0 % (0-3) 01/17/19 07:05 Platelet Estimate ADEQUATE (NORMAL) 01/17/19 07:05 Sodium 138 mEq/L (136-145) 01/17/19 07:05 Potassium 4.1 mEq/L (3.5-5.1) 01/17/19 07:05 Chloride 105 mEq/L (98-107) 01/17/19 07:05 Carbon Dioxide 28.2 mEq/L (21.0-31.0) 01/17/19 07:05 Anion Gap 8.9 (7.0-16.0) 01/17/19 07:05 BUN 16 mg/dL (7-25) 01/17/19 07:05 Creatinine 1.0 mg/dL (0.7-1.3) 01/17/19 07:05 Est GFR ( Amer) TNP 01/17/19 07:05 Est GFR (Non-Af Amer) TNP 01/17/19 07:05 BUN/Creatinine Ratio 16.0 01/17/19 07:05 Glucose 117 mg/dL (70-105) H 01/17/19 07:05 POC Glucose 91 MG/DL (70 - 105) 01/17/19 17:14 Whole Bld Lactic Acid 1.13 mmol/L (0.60-1.99) 01/16/19 21:10 Calcium 9.0 mg/dL (8.6-10.3) 01/17/19 07:05 Total Bilirubin 0.3 mg/dL (0.3-1.0) 01/16/19 21:10 AST 13 U/L (13-39) 01/16/19 21:10 ALT 7 U/L (7-52) 01/16/19 21:10 Alkaline Phosphatase 61 U/L (34-104) 01/16/19 21:10 Troponin I 0.02 ng/mL (0.01-0.05) 01/17/19 15:01 Total Protein 6.2 gm/dL (6.0-8.3) 01/16/19 21:10 Albumin 3.8 gm/dL (4.2-5.5) L 01/16/19 21:10 Globulin 2.4 gm/dL 01/16/19 21:10 Albumin/Globulin Ratio 1.6 (1.0-1.8) 01/16/19 21:10 Triglycerides 48 mg/dL (<150) 01/17/19 07:05 Cholesterol 136 mg/dL (<200) 01/17/19 07:05 LDL Cholesterol Direct 65 mg/dL (75-193) L 01/17/19 07:05 HDL Cholesterol 54 mg/dL (23-92) 01/17/19 07:05 TSH 0.62 uIU/ml (0.34-5.60) 01/16/19 21:10 Urine Source CLEAN C 01/16/19 20:40 Urine Color YELLOW 01/16/19 20:40 Urine Clarity CLEAR (CLEAR) 01/16/19 20:40 Urine pH 5.5 (4.6 - 8.0) 01/16/19 20:40 Ur Specific [place] 1.015 (1.005-1.030) 01/16/19 20:40 Urine Protein NEGATIVE mg/dL (NEGATIVE) 01/16/19 20:40 Urine Glucose (UA) NEGATIVE mg/dL (NEGATIVE) 01/16/19 20:40 Urine Ketones NEGATIVE mg/dL (NEGATIVE) 01/16/19 20:40 Urine Blood NEGATIVE (NEGATIVE) 01/16/19 20:40 Urine Nitrate NEGATIVE (NEGATIVE) 01/16/19 20:40 Urine Bilirubin NEGATIVE (NEGATIVE) 01/16/19 20:40 Urine Urobilinogen 0.2 E.U./dL (0.2 - 1.0) 01/16/19 20:40 Ur Leukocyte Esterase NEGATIVE (NEGATIVE) 01/16/19 20:40 Urine RBC NONE SEEN /hpf (0-5) 01/16/19 20:40 Urine WBC 0-2 /hpf (0-5) 01/16/19 20:40 Ur Epithelial Cells FEW /lpf (FEW) 01/16/19 20:40 Urine Bacteria FEW /hpf (NONE SEEN) 01/16/19 20:40 Urine Mucus FEW /lpf (FEW) 01/16/19 20:40 - Physical Exam Vitals and I&O: Vital Signs Temp 97.3 F 01/19/19 11:35 Pulse 60 01/19/19 11:35 Resp 18 01/19/19 12:47 BP 100/59 01/19/19 11:35 Pulse Ox 98 01/19/19 11:35 Intake & Output 01/18/19 01/19/19 01/19/19 18:59 06:59 18:59 Intake Total 500 300 Balance 500 300 Weight (lbs) 55.338 kg 55.338 kg 55.338 kg Intake: Oral 500 300 Other: # Voids 4 2 # Bowel Movements 1 Weight Source Estimated Bedscale Bedscale Active Medications: Current Medications Acetaminophen (Tylenol) 650 mg PO Q6HR PRN PRN Reason: Pain (Mild) Stop: 03/18/19 12:41 Amlodipine Besylate (Norvasc) 5 mg PO DAILY [facility] Stop: 03/18/19 12:44 Last Admin: 01/19/19 08:46 Dose: Not Given Ascorbic Acid (Vitamin C) 500 mg PO DAILY [facility] Stop: 03/18/19 12:44 Last Admin: 01/19/19 08:45 Dose: 500 mg Docusate Sodium (Colace) 100 mg PO BID [facility] Stop: 03/18/19 16:59 Last Admin: 01/19/19 08:45 Dose: 100 mg Donepezil HCl (Aricept) 5 mg PO HS [facility] Stop: 03/18/19 20:59 Last Admin: 01/18/19 20:13 Dose: 5 mg Heparin Sodium (Porcine) (Heparin) 5,000 units SUBQ Q12H [facility] Stop: 03/18/19 20:59 Last Admin: 01/19/19 08:46 Dose: 5,000 units Lisinopril (Zestril) 5 mg PO DAILY [facility] Stop: 03/18/19 12:44 Last Admin: 01/19/19 08:47 Dose: Not Given Magnesium Hydroxide (Milk Of Magnesia) 30 ml PO Q6HR PRN PRN Reason: Constipation Stop: 03/18/19 12:41 Memantine (Namenda) 5 mg PO HS [facility] Stop: 03/18/19 20:59 Last Admin: 01/18/19 20:13 Dose: 5 mg Miscellaneous (Vte Chemical Prophylaxis Screen/ Admission) 1 ea [facility] PRN PRN PRN Reason: PROTOCOL Stop: 03/18/19 16:11 Multivitamins/Vitamin C (Theragran) 1 tab PO DAILY [facility] Stop: 03/18/19 12:44 Last Admin: 01/19/19 08:45 Dose: 1 tab General: weak HEENT: NC/AT Neck: Supple, No JVD Lungs: CTAB Cardiovascular: RRR Abdomen: soft, non-tender Extremities: clear Neurological: no change Internal Medicine Assmt/Plan - Assessment Assessment: Altered mental status improved. Generalized weakness HTN Dementia - Plan Plan: Continue as per Dr Jeffrey.
[2019-01-20] MEDS: Multivitamin Tab PO SCH (09:02)
[2019-01-20] MEDS: Heparin Sod 5,000Units/ML 5,000 UNITS/ML VIAL SUBQ SCH ×2 (09:03→20:34)
--- NOTE | 2019-01-20 15:58 | Internal Medicine Prog Note ---
Internal Medicine Subjective - Subjective Service Date: 01/20/19 Patient seen and examined:: with staff Patient is:: awake, verbal, interactive, ambulating Patient Complaints of:: other (AMS improving.) Per staff patient has:: no adverse event, no episodes of fall Internal Medicine Objective - Results Result Diagrams: 01/17/19 07:05 01/17/19 07:05 Recent Labs: Laboratory Last Values WBC 4.7 Th/cmm (4.8-10.8) L 01/17/19 07:05 RBC 3.47 Mil/cmm (3.80-5.80) L 01/17/19 07:05 Hgb 11.8 gm/dL (12-16) L 01/17/19 07:05 Hct 34.4 % (41.0-60) L 01/17/19 07:05 MCV 99.2 fl (80-99) H 01/17/19 07:05 MCH 33.9 pg (27.0-31.0) H 01/17/19 07:05 MCHC Differential 34.1 pg (28.0-36.0) 01/17/19 07:05 RDW 12.5 % (11.5-20.0) 01/17/19 07:05 Plt Count 171 Th/cmm (150-400) 01/17/19 07:05 MPV 7.9 fl 01/17/19 07:05 Add Manual Diff YES 01/17/19 07:05 Neutrophils % 64.5 % (40.0-80.0) 01/16/19 21:10 Band Neutrophils % 0 % (0-10) 01/17/19 07:05 Lymphocytes % 23.0 % (20.0-50.0) 01/16/19 21:10 Monocytes % 9.5 % (2.0-10.0) 01/16/19 21:10 Eosinophils % 2.6 % (0.0-5.0) 01/16/19 21:10 Basophils % 0.4 % (0.0-2.0) 01/16/19 21:10 Neutrophils (Manual) 73 % (40-80) 01/17/19 07:05 Lymphocytes 20 % (20-50) 01/17/19 07:05 Monocytes 6 % (2-10) 01/17/19 07:05 Eosinophils 1 % (0-5) 01/17/19 07:05 Basophils 0 % (0-3) 01/17/19 07:05 Platelet Estimate ADEQUATE (NORMAL) 01/17/19 07:05 Sodium 138 mEq/L (136-145) 01/17/19 07:05 Potassium 4.1 mEq/L (3.5-5.1) 01/17/19 07:05 Chloride 105 mEq/L (98-107) 01/17/19 07:05 Carbon Dioxide 28.2 mEq/L (21.0-31.0) 01/17/19 07:05 Anion Gap 8.9 (7.0-16.0) 01/17/19 07:05 BUN 16 mg/dL (7-25) 01/17/19 07:05 Creatinine 1.0 mg/dL (0.7-1.3) 01/17/19 07:05 Est GFR ( Amer) TNP 01/17/19 07:05 Est GFR (Non-Af Amer) TNP 01/17/19 07:05 BUN/Creatinine Ratio 16.0 01/17/19 07:05 Glucose 117 mg/dL (70-105) H 01/17/19 07:05 POC Glucose 91 MG/DL (70 - 105) 01/17/19 17:14 Whole Bld Lactic Acid 1.13 mmol/L (0.60-1.99) 01/16/19 21:10 Calcium 9.0 mg/dL (8.6-10.3) 01/17/19 07:05 Total Bilirubin 0.3 mg/dL (0.3-1.0) 01/16/19 21:10 AST 13 U/L (13-39) 01/16/19 21:10 ALT 7 U/L (7-52) 01/16/19 21:10 Alkaline Phosphatase 61 U/L (34-104) 01/16/19 21:10 Troponin I 0.02 ng/mL (0.01-0.05) 01/17/19 15:01 Total Protein 6.2 gm/dL (6.0-8.3) 01/16/19 21:10 Albumin 3.8 gm/dL (4.2-5.5) L 01/16/19 21:10 Globulin 2.4 gm/dL 01/16/19 21:10 Albumin/Globulin Ratio 1.6 (1.0-1.8) 01/16/19 21:10 Triglycerides 48 mg/dL (<150) 01/17/19 07:05 Cholesterol 136 mg/dL (<200) 01/17/19 07:05 LDL Cholesterol Direct 65 mg/dL (75-193) L 01/17/19 07:05 HDL Cholesterol 54 mg/dL (23-92) 01/17/19 07:05 TSH 0.62 uIU/ml (0.34-5.60) 01/16/19 21:10 Urine Source CLEAN C 01/16/19 20:40 Urine Color YELLOW 01/16/19 20:40 Urine Clarity CLEAR (CLEAR) 01/16/19 20:40 Urine pH 5.5 (4.6 - 8.0) 01/16/19 20:40 Ur Specific [place] 1.015 (1.005-1.030) 01/16/19 20:40 Urine Protein NEGATIVE mg/dL (NEGATIVE) 01/16/19 20:40 Urine Glucose (UA) NEGATIVE mg/dL (NEGATIVE) 01/16/19 20:40 Urine Ketones NEGATIVE mg/dL (NEGATIVE) 01/16/19 20:40 Urine Blood NEGATIVE (NEGATIVE) 01/16/19 20:40 Urine Nitrate NEGATIVE (NEGATIVE) 01/16/19 20:40 Urine Bilirubin NEGATIVE (NEGATIVE) 01/16/19 20:40 Urine Urobilinogen 0.2 E.U./dL (0.2 - 1.0) 01/16/19 20:40 Ur Leukocyte Esterase NEGATIVE (NEGATIVE) 01/16/19 20:40 Urine RBC NONE SEEN /hpf (0-5) 01/16/19 20:40 Urine WBC 0-2 /hpf (0-5) 01/16/19 20:40 Ur Epithelial Cells FEW /lpf (FEW) 01/16/19 20:40 Urine Bacteria FEW /hpf (NONE SEEN) 01/16/19 20:40 Urine Mucus FEW /lpf (FEW) 01/16/19 20:40 - Physical Exam Vitals and I&O: Vital Signs Temp 98.0 F 01/20/19 12:12 Pulse 68 01/20/19 12:12 Resp 18 01/20/19 13:00 BP 118/70 01/20/19 12:12 Pulse Ox 98 01/20/19 12:12 Intake & Output 01/19/19 01/20/19 01/20/19 18:59 06:59 18:59 Intake Total 900 500 300 Balance 900 500 300 Weight (lbs) 55.338 kg 55.338 kg 55.338 kg Intake: Oral 900 500 300 Other: # Voids 3 4 # Bowel Movements 1 Weight Source Bedscale Bedscale Bedscale Active Medications: Current Medications Acetaminophen (Tylenol) 650 mg PO Q6HR PRN PRN Reason: Pain (Mild) Stop: 03/18/19 12:41 Amlodipine Besylate (Norvasc) 5 mg PO DAILY [facility] Stop: 03/18/19 12:44 Last Admin: 01/20/19 09:02 Dose: 5 mg Ascorbic Acid (Vitamin C) 500 mg PO DAILY [facility] Stop: 03/18/19 12:44 Last Admin: 01/20/19 09:02 Dose: 500 mg Docusate Sodium (Colace) 100 mg PO BID [facility] Stop: 03/18/19 16:59 Last Admin: 01/20/19 09:02 Dose: 100 mg Donepezil HCl (Aricept) 5 mg PO HS [facility] Stop: 03/18/19 20:59 Last Admin: 01/19/19 21:48 Dose: 5 mg Heparin Sodium (Porcine) (Heparin) 5,000 units SUBQ Q12H [facility] Stop: 03/18/19 20:59 Last Admin: 01/20/19 09:03 Dose: 5,000 units Lisinopril (Zestril) 5 mg PO DAILY [facility] Stop: 03/18/19 12:44 Last Admin: 01/20/19 09:03 Dose: 5 mg Magnesium Hydroxide (Milk Of Magnesia) 30 ml PO Q6HR PRN PRN Reason: Constipation Stop: 03/18/19 12:41 Memantine (Namenda) 5 mg PO HS [facility] Stop: 03/18/19 20:59 Last Admin: 01/19/19 21:48 Dose: 5 mg Miscellaneous (Vte Chemical Prophylaxis Screen/ Admission) 1 ea [facility] PRN PRN PRN Reason: PROTOCOL Stop: 03/18/19 16:11 Multivitamins/Vitamin C (Theragran) 1 tab PO DAILY [facility] Stop: 03/18/19 12:44 Last Admin: 01/20/19 09:02 Dose: 1 tab Physical Exam: 88 y/o male patient has generalized weakness. General: weak HEENT: NC/AT Neck: Supple, No JVD Lungs: CTAB Cardiovascular: RRR Abdomen: soft, non-tender Extremities: clear Neurological: no change Internal Medicine Assmt/Plan - Assessment Assessment: Hypertension. Altered mental status. Generalized weakness. Dementia. Osteoarthritis. - Plan Plan: Continuation of care. Monitor Labs. Continue present meds as directed. Monitor vitals, continue B/P meds. Monitor Diet/Nutritional support. Psych management per Psych. Pain Management. Physical therapy. Occupational therapy. Safety precaution. Supportive care. Fall precaution, frequent nursing rounds, and as needed restraints to prevent fall. Continue collaborating with consulting specialists, case management and nursing team. Will Monitor patient and continue current treatment plan as ordered. Nutritional Asmnt/Malnutr-PDOC - Dietary Evaluation Malnutrition Findings (Please click <Entered> for more info): see orders.
[2019-01-21] MEDS: Multivitamin Tab PO SCH (09:59)
[2019-01-21] MEDS: Heparin Sod 5,000Units/ML 5,000 UNITS/ML VIAL SUBQ SCH (10:01)
--- NOTE | 2019-01-21 13:39 | Diagnostic Imaging Report ---
Head CT without intravenous contrast Indication: CVA Comparison: None Technique: Axial images were obtained from the vertex to the skull base without IV contrast. Coronal reconstructions were made. Total DLP: 605, [id number] FINDINGS: Images of the brain obtained without contrast demonstrate faint hemorrhage likely subarachnoid along the right frontoparietal region. Atrophy is noted. There is moderate white matter disease. No mass effect or midline shift. Atherosclerosis is noted. No note the right skull base is incompletely imaged. No evidence of a skull fracture. There is a tissue nodule of the forehead measuring 5 mm. Diffuse atherosclerosis is noted. IMPRESSION: Small amount of hemorrhage, likely subarachnoid hemorrhage seen along the right frontoparietal region. Please correlate clinically as this may be posttraumatic. Aneurysmal hemorrhage is less likely. No mass effect. No midline shift or Follow-up recommended to ensure resolution. Atrophy. Moderate supratentorial white matter disease which is nonspecific and may be due to chronic microvessel ischemia. Atherosclerotic vascular disease. Critical results were relayed to the referring team following the exam on 01/21/2019.
--- NOTE | 2019-01-21 13:55 | Consultation ---
DATE OF CONSULTATION: 01/20/2019 NEUROLOGY CONSULTATION HISTORY OF PRESENT ILLNESS: The patient is an 88-year-old. The patient noted to be weak. Getting somewhat better, not ready to walk. The patient also confused on and off. PAST MEDICAL HISTORY: The patient with history of hypertension. Dementia. The patient gives a history of head injury in the past. REVIEW OF SYSTEMS: Twelve-point negative except for the above. Not much headache, feels some unsteadiness. Weakness. On and off confused. No chest pain, no shortness of breath. No cough, sputum, or hemoptysis. SOCIAL HISTORY: Does not smoke or drink. In the [facility] facility. SURGERIES: None known. PHYSICAL EXAMINATION: VITAL SIGNS: Temperature 98.2, blood pressure 105/60, pulse is 64. NECK: Supple. No neck bruits. Normal heart sounds. LUNGS: Clear. NEUROLOGIC: The patient is awake, alert. The patient will give me his name, his age. He did not know the day. He knew the month. He did not know the date. He knew the year. The patient is able to name objects. Short-term memory is 0/3. Cranial: Pupils react to light. Full eye movement. No nystagmus. No facial weakness. Motor: He is able to lift both arms about 4/5, legs about 4+/5. Reflexes are 1 to 2 in the upper extremity. Knees are about 2+. Gait not tested. LABORATORY DATA: WBC is 4.7, hemoglobin 11.8. Sodium and potassium okay. TSH is okay. ASSESSMENT: 1. Dementia. 2. Encephalopathy. 3. Weakness. 4. Hypertension. PLAN: 1. At this time, we will go ahead and do a CT scan of the head, especially in view of the history of his head injury. 2. Check labs. 3. Continue present management otherwise. JOB# [id number]
[2019-01-21] MEDS ORDERED: IOHEXOL 350mgI/mL 150mL IV ONE (14:58)
--- NOTE | 2019-01-21 19:57 | Internal Medicine Prog Note ---
Internal Medicine Subjective - Subjective Service Date: 01/21/19 Patient is:: awake, verbal, interactive, ambulating Patient Complaints of:: other (AMS improving.) Per staff patient has:: no adverse event, no episodes of fall Internal Medicine Objective - Results Result Diagrams: 01/17/19 07:05 01/17/19 07:05 Recent Labs: Laboratory Last Values WBC 4.7 Th/cmm (4.8-10.8) L 01/17/19 07:05 RBC 3.47 Mil/cmm (3.80-5.80) L 01/17/19 07:05 Hgb 11.8 gm/dL (12-16) L 01/17/19 07:05 Hct 34.4 % (41.0-60) L 01/17/19 07:05 MCV 99.2 fl (80-99) H 01/17/19 07:05 MCH 33.9 pg (27.0-31.0) H 01/17/19 07:05 MCHC Differential 34.1 pg (28.0-36.0) 01/17/19 07:05 RDW 12.5 % (11.5-20.0) 01/17/19 07:05 Plt Count 171 Th/cmm (150-400) 01/17/19 07:05 MPV 7.9 fl 01/17/19 07:05 Add Manual Diff YES 01/17/19 07:05 Neutrophils % 64.5 % (40.0-80.0) 01/16/19 21:10 Band Neutrophils % 0 % (0-10) 01/17/19 07:05 Lymphocytes % 23.0 % (20.0-50.0) 01/16/19 21:10 Monocytes % 9.5 % (2.0-10.0) 01/16/19 21:10 Eosinophils % 2.6 % (0.0-5.0) 01/16/19 21:10 Basophils % 0.4 % (0.0-2.0) 01/16/19 21:10 Neutrophils (Manual) 73 % (40-80) 01/17/19 07:05 Lymphocytes 20 % (20-50) 01/17/19 07:05 Monocytes 6 % (2-10) 01/17/19 07:05 Eosinophils 1 % (0-5) 01/17/19 07:05 Basophils 0 % (0-3) 01/17/19 07:05 Platelet Estimate ADEQUATE (NORMAL) 01/17/19 07:05 Sodium 138 mEq/L (136-145) 01/17/19 07:05 Potassium 4.1 mEq/L (3.5-5.1) 01/17/19 07:05 Chloride 105 mEq/L (98-107) 01/17/19 07:05 Carbon Dioxide 28.2 mEq/L (21.0-31.0) 01/17/19 07:05 Anion Gap 8.9 (7.0-16.0) 01/17/19 07:05 BUN 16 mg/dL (7-25) 01/17/19 07:05 Creatinine 1.0 mg/dL (0.7-1.3) 01/17/19 07:05 Est GFR ( Amer) TNP 01/17/19 07:05 Est GFR (Non-Af Amer) TNP 01/17/19 07:05 BUN/Creatinine Ratio 16.0 01/17/19 07:05 Glucose 117 mg/dL (70-105) H 01/17/19 07:05 POC Glucose 91 MG/DL (70 - 105) 01/17/19 17:14 Whole Bld Lactic Acid 1.13 mmol/L (0.60-1.99) 01/16/19 21:10 Calcium 9.0 mg/dL (8.6-10.3) 01/17/19 07:05 Total Bilirubin 0.3 mg/dL (0.3-1.0) 01/16/19 21:10 AST 13 U/L (13-39) 01/16/19 21:10 ALT 7 U/L (7-52) 01/16/19 21:10 Alkaline Phosphatase 61 U/L (34-104) 01/16/19 21:10 Creatine Kinase 47 U/L (30-223) 01/21/19 06:30 Troponin I 0.02 ng/mL (0.01-0.05) 01/17/19 15:01 C-Reactive Protein < 0.2 mg/dL (0.0-0.9) 01/21/19 06:30 Total Protein 6.2 gm/dL (6.0-8.3) 01/16/19 21:10 Albumin 3.8 gm/dL (4.2-5.5) L 01/16/19 21:10 Globulin 2.4 gm/dL 01/16/19 21:10 Albumin/Globulin Ratio 1.6 (1.0-1.8) 01/16/19 21:10 Triglycerides 48 mg/dL (<150) 01/17/19 07:05 Cholesterol 136 mg/dL (<200) 01/17/19 07:05 LDL Cholesterol Direct 65 mg/dL (75-193) L 01/17/19 07:05 HDL Cholesterol 54 mg/dL (23-92) 01/17/19 07:05 TSH 0.55 uIU/ml (0.34-5.60) 01/21/19 06:30 Urine Source CLEAN C 01/16/19 20:40 Urine Color YELLOW 01/16/19 20:40 Urine Clarity CLEAR (CLEAR) 01/16/19 20:40 Urine pH 5.5 (4.6 - 8.0) 01/16/19 20:40 Ur Specific [place] 1.015 (1.005-1.030) 01/16/19 20:40 Urine Protein NEGATIVE mg/dL (NEGATIVE) 01/16/19 20:40 Urine Glucose (UA) NEGATIVE mg/dL (NEGATIVE) 01/16/19 20:40 Urine Ketones NEGATIVE mg/dL (NEGATIVE) 01/16/19 20:40 Urine Blood NEGATIVE (NEGATIVE) 01/16/19 20:40 Urine Nitrate NEGATIVE (NEGATIVE) 01/16/19 20:40 Urine Bilirubin NEGATIVE (NEGATIVE) 01/16/19 20:40 Urine Urobilinogen 0.2 E.U./dL (0.2 - 1.0) 01/16/19 20:40 Ur Leukocyte Esterase NEGATIVE (NEGATIVE) 01/16/19 20:40 Urine RBC NONE SEEN /hpf (0-5) 01/16/19 20:40 Urine WBC 0-2 /hpf (0-5) 01/16/19 20:40 Ur Epithelial Cells FEW /lpf (FEW) 01/16/19 20:40 Urine Bacteria FEW /hpf (NONE SEEN) 01/16/19 20:40 Urine Mucus FEW /lpf (FEW) 01/16/19 20:40 - Physical Exam Vitals and I&O: Vital Signs Temp 97.5 F 01/21/19 16:00 Pulse 66 01/21/19 16:00 Resp 18 01/21/19 17:05 BP 126/80 01/21/19 16:00 Pulse Ox 98 01/21/19 16:00 Intake & Output 01/21/19 01/21/19 01/22/19 06:59 18:59 06:59 Intake Total 500 900 Balance 500 900 Weight (lbs) 122 lb 122 lb Intake: Oral 500 900 Other: # Voids 3 4 # Bowel Movements 1 Weight Source Bedscale Bedscale Active Medications: Current Medications Acetaminophen (Tylenol) 650 mg PO Q6HR PRN PRN Reason: Pain (Mild) Stop: 03/18/19 12:41 Amlodipine Besylate (Norvasc) 5 mg PO DAILY [facility] Stop: 03/18/19 12:44 Last Admin: 01/21/19 09:59 Dose: 5 mg Ascorbic Acid (Vitamin C) 500 mg PO DAILY [facility] Stop: 03/18/19 12:44 Last Admin: 01/21/19 10:08 Dose: 500 mg Docusate Sodium (Colace) 100 mg PO BID [facility] Stop: 03/18/19 16:59 Last Admin: 01/21/19 16:20 Dose: 100 mg Donepezil HCl (Aricept) 5 mg PO HS [facility] Stop: 03/18/19 20:59 Last Admin: 01/20/19 20:34 Dose: 5 mg Lisinopril (Zestril) 5 mg PO DAILY [facility] Stop: 03/18/19 12:44 Last Admin: 01/21/19 09:56 Dose: 5 mg Magnesium Hydroxide (Milk Of Magnesia) 30 ml PO Q6HR PRN PRN Reason: Constipation Stop: 03/18/19 12:41 Memantine (Namenda) 5 mg PO HS [facility] Stop: 03/18/19 20:59 Last Admin: 01/20/19 20:34 Dose: 5 mg Miscellaneous (Vte Chemical Prophylaxis Screen/ Admission) 1 ea [facility] PRN PRN PRN Reason: PROTOCOL Stop: 03/18/19 16:11 Multivitamins/Vitamin C (Theragran) 1 tab PO DAILY [facility] Stop: 03/18/19 12:44 Last Admin: 01/21/19 09:59 Dose: 1 tab General: weak HEENT: NC/AT Neck: Supple, No JVD Lungs: CTAB Cardiovascular: RRR Abdomen: soft, non-tender Extremities: clear Neurological: no change Internal Medicine Assmt/Plan - Assessment Assessment: Hypertension. Altered mental status. Generalized weakness. Dementia. Osteoarthritis. - Plan Plan: waiting for transfer higher level of care cpm
--- NOTE | 2019-01-21 22:47 | Progress Notes ---
DATE: 01/21/2019 SUBJECTIVE: Chart was reviewed and the patient interviewed. Also discussed the patient's condition with the staff and reviewed records and labs. The patient is less irritable and less agitated. The patient also is calm. He is still confused and is still unable to answer most of the questions coherently. Denies any side effects of medications. ASSESSMENT: The patient is not psychotic or suicidal or homicidal. TREATMENT PLAN: Continue same level of treatment and continue to follow up and work on placement issue and discharge plans. JOB# [id number]
[2019-01-22 06:07] LABS: % BASOPHILS 1.6 % (0.0-2.0); % EOSINOPHILS 2.4 % (0.0-5.0); % LYMPHOCYTES 23.4 % (20.0-50.0); % MONOCYTES 8.1 % (2.0-10.0); % NEUTROPHILS 64.5 % (40.0-80.0); BASOPHILE ABSOLUTE 0.1 Th/cumm (0-0.2); EOSINOPHILE ABSOLUTE 0.1 Th/cmm (0.1-0.4); HEMATOCRIT 34.6 % (41.0-60); HEMOGLOBIN 11.9 gm/dL (12-16); LYMPHOCYTE ABSOLUTE 1.1 Th/cmm (1.5-3.0); MEAN CELL VOLUME 98.2 fl (80-99); MEAN CORPUSCULAR HEMOGLOBIN 33.7 pg (27.0-31.0); MEAN CORPUSCULAR HGB CONC 34.3 pg (28.0-36.0); MONOCYTE ABSOLUTE 0.4 Th/cmm (0.3-1.0); NEUTROPHILE ABSOLUTE 3.1 Th/cmm (1.8-8.0); PLATELET COUNT 179 Th/cmm (150-400); RED BLOOD COUNT 3.53 Mil/cmm (3.80-5.80); RED CELL DISTRIBUTION WIDTH 12.6 % (11.5-20.0); WHITE BLOOD COUNT 4.8 Th/cmm (4.8-10.8)
[2019-01-22 06:45] LABS: BUN - UREA NITROGEN 27 mg/dL (7-25); CALCIUM SERUM 9.2 mg/dL (8.6-10.3); CARBON DIOXIDE 22.4 mEq/L (21.0-31.0); CHLORIDE 103 mEq/L (98-107); CREATININE - SERUM 1.1 mg/dL (0.7-1.3); GLUCOSE 103 mg/dL (70-105); POTASSIUM SERUM 4.4 mEq/L (3.5-5.1); SODIUM SERUM 135 mEq/L (136-145)
[2019-01-22] MEDS: Multivitamin Tab PO SCH (09:05)
--- NOTE | 2019-01-22 14:20 | Internal Medicine Prog Note ---
Internal Medicine Subjective - Subjective Service Date: 01/22/19 Patient is:: awake, verbal, interactive Patient Complaints of:: other (AMS improving.) Per staff patient has:: no adverse event, no episodes of fall Internal Medicine Objective - Results Result Diagrams: 01/22/19 05:45 01/22/19 05:45 Recent Labs: Laboratory Last Values WBC 4.8 Th/cmm (4.8-10.8) 01/22/19 05:45 RBC 3.53 Mil/cmm (3.80-5.80) L 01/22/19 05:45 Hgb 11.9 gm/dL (12-16) L 01/22/19 05:45 Hct 34.6 % (41.0-60) L 01/22/19 05:45 MCV 98.2 fl (80-99) 01/22/19 05:45 MCH 33.7 pg (27.0-31.0) H 01/22/19 05:45 MCHC Differential 34.3 pg (28.0-36.0) 01/22/19 05:45 RDW 12.6 % (11.5-20.0) 01/22/19 05:45 Plt Count 179 Th/cmm (150-400) 01/22/19 05:45 MPV 7.8 fl 01/22/19 05:45 Add Manual Diff YES 01/17/19 07:05 Neutrophils % 64.5 % (40.0-80.0) 01/22/19 05:45 Band Neutrophils % 0 % (0-10) 01/17/19 07:05 Lymphocytes % 23.4 % (20.0-50.0) 01/22/19 05:45 Monocytes % 8.1 % (2.0-10.0) 01/22/19 05:45 Eosinophils % 2.4 % (0.0-5.0) 01/22/19 05:45 Basophils % 1.6 % (0.0-2.0) 01/22/19 05:45 Neutrophils (Manual) 73 % (40-80) 01/17/19 07:05 Lymphocytes 20 % (20-50) 01/17/19 07:05 Monocytes 6 % (2-10) 01/17/19 07:05 Eosinophils 1 % (0-5) 01/17/19 07:05 Basophils 0 % (0-3) 01/17/19 07:05 Platelet Estimate ADEQUATE (NORMAL) 01/17/19 07:05 Sodium 135 mEq/L (136-145) L 01/22/19 05:45 Potassium 4.4 mEq/L (3.5-5.1) 01/22/19 05:45 Chloride 103 mEq/L (98-107) 01/22/19 05:45 Carbon Dioxide 22.4 mEq/L (21.0-31.0) 01/22/19 05:45 Anion Gap 14.0 (7.0-16.0) 01/22/19 05:45 BUN 27 mg/dL (7-25) H 01/22/19 05:45 Creatinine 1.1 mg/dL (0.7-1.3) 01/22/19 05:45 Est GFR ( Amer) TNP 01/22/19 05:45 Est GFR (Non-Af Amer) TNP 01/22/19 05:45 BUN/Creatinine Ratio 24.5 01/22/19 05:45 Glucose 103 mg/dL (70-105) 01/22/19 05:45 POC Glucose 91 MG/DL (70 - 105) 01/17/19 17:14 Whole Bld Lactic Acid 1.13 mmol/L (0.60-1.99) 01/16/19 21:10 Calcium 9.2 mg/dL (8.6-10.3) 01/22/19 05:45 Total Bilirubin 0.3 mg/dL (0.3-1.0) 01/16/19 21:10 AST 13 U/L (13-39) 01/16/19 21:10 ALT 7 U/L (7-52) 01/16/19 21:10 Alkaline Phosphatase 61 U/L (34-104) 01/16/19 21:10 Creatine Kinase 47 U/L (30-223) 01/21/19 06:30 Troponin I 0.02 ng/mL (0.01-0.05) 01/17/19 15:01 C-Reactive Protein < 0.2 mg/dL (0.0-0.9) 01/21/19 06:30 Total Protein 6.2 gm/dL (6.0-8.3) 01/16/19 21:10 Albumin 3.8 gm/dL (4.2-5.5) L 01/16/19 21:10 Globulin 2.4 gm/dL 01/16/19 21:10 Albumin/Globulin Ratio 1.6 (1.0-1.8) 01/16/19 21:10 Triglycerides 48 mg/dL (<150) 01/17/19 07:05 Cholesterol 136 mg/dL (<200) 01/17/19 07:05 LDL Cholesterol Direct 65 mg/dL (75-193) L 01/17/19 07:05 HDL Cholesterol 54 mg/dL (23-92) 01/17/19 07:05 TSH 0.55 uIU/ml (0.34-5.60) 01/21/19 06:30 Urine Source CLEAN C 01/16/19 20:40 Urine Color YELLOW 01/16/19 20:40 Urine Clarity CLEAR (CLEAR) 01/16/19 20:40 Urine pH 5.5 (4.6 - 8.0) 01/16/19 20:40 Ur Specific [place] 1.015 (1.005-1.030) 01/16/19 20:40 Urine Protein NEGATIVE mg/dL (NEGATIVE) 01/16/19 20:40 Urine Glucose (UA) NEGATIVE mg/dL (NEGATIVE) 01/16/19 20:40 Urine Ketones NEGATIVE mg/dL (NEGATIVE) 01/16/19 20:40 Urine Blood NEGATIVE (NEGATIVE) 01/16/19 20:40 Urine Nitrate NEGATIVE (NEGATIVE) 01/16/19 20:40 Urine Bilirubin NEGATIVE (NEGATIVE) 01/16/19 20:40 Urine Urobilinogen 0.2 E.U./dL (0.2 - 1.0) 01/16/19 20:40 Ur Leukocyte Esterase NEGATIVE (NEGATIVE) 01/16/19 20:40 Urine RBC NONE SEEN /hpf (0-5) 01/16/19 20:40 Urine WBC 0-2 /hpf (0-5) 01/16/19 20:40 Ur Epithelial Cells FEW /lpf (FEW) 01/16/19 20:40 Urine Bacteria FEW /hpf (NONE SEEN) 01/16/19 20:40 Urine Mucus FEW /lpf (FEW) 01/16/19 20:40 - Physical Exam Vitals and I&O: Vital Signs Temp 98.2 F 01/22/19 11:35 Pulse 71 01/22/19 11:35 Resp 18 01/22/19 12:00 BP 132/67 01/22/19 11:35 Pulse Ox 96 01/22/19 11:35 Intake & Output 01/21/19 01/22/19 01/22/19 18:59 06:59 18:59 Intake Total 900 200 Balance 900 200 Weight (lbs) 122 lb 135 lb 8 oz Intake: Oral 900 200 Other: # Voids 4 4 # Bowel Movements 1 Stool Characteristics Formed Brown Weight Source Bedscale Bedscale Active Medications: Current Medications Acetaminophen (Tylenol) 650 mg PO Q6HR PRN PRN Reason: Pain (Mild) Stop: 03/18/19 12:41 Amlodipine Besylate (Norvasc) 5 mg PO DAILY [facility] Stop: 03/18/19 12:44 Last Admin: 01/22/19 09:05 Dose: 5 mg Ascorbic Acid (Vitamin C) 500 mg PO DAILY [facility] Stop: 03/18/19 12:44 Last Admin: 01/22/19 09:05 Dose: 500 mg Docusate Sodium (Colace) 100 mg PO BID [facility] Stop: 03/18/19 16:59 Last Admin: 01/22/19 09:05 Dose: 100 mg Donepezil HCl (Aricept) 5 mg PO HS [facility] Stop: 03/18/19 20:59 Last Admin: 01/21/19 21:15 Dose: 5 mg Lisinopril (Zestril) 5 mg PO DAILY [facility] Stop: 03/18/19 12:44 Last Admin: 01/22/19 09:04 Dose: 5 mg Magnesium Hydroxide (Milk Of Magnesia) 30 ml PO Q6HR PRN PRN Reason: Constipation Stop: 03/18/19 12:41 Memantine (Namenda) 5 mg PO HS [facility] Stop: 03/18/19 20:59 Last Admin: 01/21/19 21:16 Dose: 5 mg Miscellaneous (Vte Chemical Prophylaxis Screen/ Admission) 1 ea [facility] PRN PRN PRN Reason: PROTOCOL Stop: 03/18/19 16:11 Multivitamins/Vitamin C (Theragran) 1 tab PO DAILY [facility] Stop: 03/18/19 12:44 Last Admin: 01/22/19 09:05 Dose: 1 tab General: weak HEENT: NC/AT Neck: Supple, No JVD Lungs: CTAB Cardiovascular: RRR Abdomen: soft, non-tender Extremities: clear Neurological: no change Internal Medicine Assmt/Plan - Assessment Assessment: Hypertension. Altered mental status. Generalized weakness. Dementia. Osteoarthritis. - Plan Plan: waiting for transfer higher level of care cpm
[2019-01-22 17:05] LABS: FOLIC ACID >20.0 ng/mL (>3.0)
--- NOTE | 2019-01-23 02:38 | Progress Notes ---
DATE: 01/22/2019 SUBJECTIVE: Chart was reviewed and the patient interviewed. Also discussed the patient's condition with the staff and reviewed records and labs. The patient is still anxious and he is still in an irritable mood at times, but most of the time he is calm, quiet, and cooperative. The patient also seems to be less irritable and less agitated. He is also compliant with taking his medications with no side effects of medications. ASSESSMENT: The patient is less irritable and less agitated. TREATMENT PLAN: Continue current medications and treatment and continue to follow up closely. JOB# [id number]
[2019-01-23 06:33] LABS: % BASOPHILS 0.5 % (0.0-2.0); % EOSINOPHILS 2.6 % (0.0-5.0); % LYMPHOCYTES 18.1 % (20.0-50.0); % MONOCYTES 7.8 % (2.0-10.0); EOSINOPHILE ABSOLUTE 0.2 Th/cmm (0.1-0.4); HEMATOCRIT 33.5 % (41.0-60); HEMOGLOBIN 11.5 gm/dL (12-16); MEAN CELL VOLUME 97.5 fl (80-99); MEAN CORPUSCULAR HEMOGLOBIN 33.5 pg (27.0-31.0); MEAN CORPUSCULAR HGB CONC 34.4 pg (28.0-36.0); MONOCYTE ABSOLUTE 0.5 Th/cmm (0.3-1.0); NEUTROPHILE ABSOLUTE 4.1 Th/cmm (1.8-8.0); PLATELET COUNT 184 Th/cmm (150-400); RED BLOOD COUNT 3.44 Mil/cmm (3.80-5.80); RED CELL DISTRIBUTION WIDTH 12.2 % (11.5-20.0); WHITE BLOOD COUNT 5.8 Th/cmm (4.8-10.8)
[2019-01-23 07:45] LABS: BUN - UREA NITROGEN 24 mg/dL (7-25); CALCIUM SERUM 9.1 mg/dL (8.6-10.3); CARBON DIOXIDE 24.4 mEq/L (21.0-31.0); CHLORIDE 105 mEq/L (98-107); CREATININE - SERUM 1.2 mg/dL (0.7-1.3); GLUCOSE 99 mg/dL (70-105); POTASSIUM SERUM 4.4 mEq/L (3.5-5.1); SODIUM SERUM 137 mEq/L (136-145)
--- NOTE | 2019-01-23 08:07 | Diagnostic Imaging Report ---
CT Head Angiogram History: Subarachnoid hemorrhage Comparison: Carotid angiogram 01/21/[address] head on 01/21/2019 Technique: Axial images were obtained from the thoracic outlet to the vertex without IV contrast, angiogram protocol. Multiplanar reconstructions were made. 283, DGI 5.9 Findings: Mild atherosclerosis of the vertebral arteries are noted. There is a tortuous left intracranial vertebral artery extending to the right side. There is focal area of moderate atherosclerosis in this region along the right skull base. There is a mild atherosclerosis of the basilar artery. The bilateral posterior cerebral arteries are grossly patent. The bilateral anterior and middle cerebral arteries are patent. There is mild atherosclerosis of the bilateral carotid siphons. No evidence of an aneurysm. IMPRESSION: Mild atherosclerosis. More focal moderate atherosclerosis is seen within the tortuous left vertebral artery along the right skull base. No evidence of an aneurysm. CT neck angiogram Findings: Diffuse degenerative changes are seen throughout the cervical spine with endplate irregularity seen at C1/2 lateral mass articulation at the right side. The bilateral parapharyngeal fat planes are preserved. Small nodules are seen along left lobe of the thyroid gland with small calcifications. Calcified granulomas in the right apex are noted. Chronic changes of the lung apices are noted. Vasculature: There is mild atherosclerosis of the right carotid bulb. No evidence of an aneurysm or dissection. Mild to moderate atherosclerosis of the right carotid siphon is noted. There is mild atherosclerosis of the left external carotid artery. Mild atherosclerosis of the left carotid siphon is noted. Codominant bilateral vertebral arteries are noted. There is focal mild to moderate narrowing of the right vertebral artery as it exits the C2 foramen and enters the C1 foramen. No aneurysm identified. There is mild atherosclerosis is seen along the aortic arch. IMPRESSION: Mild atherosclerosis of the carotid arteries, right greater than left. No significant focal stenosis. Areas of mild to moderate narrowing of the right vertebral artery as it exits the C2 foramen and enters the C1 foramen. This may be accentuated by vessel tortuosity however there may be mild atherosclerosis in this region. Consider further testing such as conventional angiography is necessary. Degenerative changes of the cervical spine with endplate irregularities seen at the right lateral mass articulation. This may be due to degenerative etiology. Infectious or inflammatory etiologies less likely however clinical correlation is needed. Small left-sided thyroid nodule with calcifications ultrasound further clarify. Evidence of prior granulomas disease.
[2019-01-23] MEDS: Multivitamin Tab PO SCH (08:45)
--- NOTE | 2019-01-23 10:29 | Progress Notes ---
DATE: 01/23/2019 SUBJECTIVE: The patient is sitting in bed, awake, alert. We will talk. The patient is somewhat unsteady. No headache. MEDICATIONS: Amlodipine, donepezil, lisinopril, lorazepam, Namenda. OBJECTIVE: VITAL SIGNS: Temperature 98.2, blood pressure 108/63, pulse is 58. NECK: Supple. No neck bruits. CARDIOVASCULAR: Normal heart sounds. LUNGS: Clear. NEUROLOGIC: The patient is awake. He will answer questions. He will lift upper and lower extremities. INVESTIGATIONS: CT scan of the head shows small amount of hemorrhage, likely subarachnoid hemorrhage in the right frontoparietal area, probably posttraumatic. CT angio of the head is pending. ASSESSMENT: 1. Subarachnoid hemorrhage, focal. 2. Dementia. 3. Encephalopathy. PLAN: 1. At the moment, CT angio of the head. 2. Continue physical therapy rehabilitation. JOB# [id number]
--- NOTE | 2019-01-23 15:14 | Internal Medicine Prog Note ---
Internal Medicine Subjective - Subjective Service Date: 01/23/19 Patient seen and examined:: with staff Patient is:: awake, verbal, interactive Patient Complaints of:: other (AMS improving.) Per staff patient has:: no adverse event, no episodes of fall Internal Medicine Objective - Results Result Diagrams: 01/23/19 05:30 01/23/19 05:30 Recent Labs: Laboratory Last Values WBC 5.8 Th/cmm (4.8-10.8) 01/23/19 05:30 RBC 3.44 Mil/cmm (3.80-5.80) L 01/23/19 05:30 Hgb 11.5 gm/dL (12-16) L 01/23/19 05:30 Hct 33.5 % (41.0-60) L 01/23/19 05:30 MCV 97.5 fl (80-99) 01/23/19 05:30 MCH 33.5 pg (27.0-31.0) H 01/23/19 05:30 MCHC Differential 34.4 pg (28.0-36.0) 01/23/19 05:30 RDW 12.2 % (11.5-20.0) 01/23/19 05:30 Plt Count 184 Th/cmm (150-400) 01/23/19 05:30 MPV 7.8 fl 01/23/19 05:30 Add Manual Diff YES 01/17/19 07:05 Neutrophils % 71.0 % (40.0-80.0) 01/23/19 05:30 Band Neutrophils % 0 % (0-10) 01/17/19 07:05 Lymphocytes % 18.1 % (20.0-50.0) L 01/23/19 05:30 Monocytes % 7.8 % (2.0-10.0) 01/23/19 05:30 Eosinophils % 2.6 % (0.0-5.0) 01/23/19 05:30 Basophils % 0.5 % (0.0-2.0) 01/23/19 05:30 Neutrophils (Manual) 73 % (40-80) 01/17/19 07:05 Lymphocytes 20 % (20-50) 01/17/19 07:05 Monocytes 6 % (2-10) 01/17/19 07:05 Eosinophils 1 % (0-5) 01/17/19 07:05 Basophils 0 % (0-3) 01/17/19 07:05 Platelet Estimate ADEQUATE (NORMAL) 01/17/19 07:05 Sodium 137 mEq/L (136-145) 01/23/19 05:30 Potassium 4.4 mEq/L (3.5-5.1) 01/23/19 05:30 Chloride 105 mEq/L (98-107) 01/23/19 05:30 Carbon Dioxide 24.4 mEq/L (21.0-31.0) 01/23/19 05:30 Anion Gap 12.0 (7.0-16.0) 01/23/19 05:30 BUN 24 mg/dL (7-25) 01/23/19 05:30 Creatinine 1.2 mg/dL (0.7-1.3) 01/23/19 05:30 Est GFR ( Amer) TNP 01/23/19 05:30 Est GFR (Non-Af Amer) TNP 01/23/19 05:30 BUN/Creatinine Ratio 20.0 01/23/19 05:30 Glucose 99 mg/dL (70-105) 01/23/19 05:30 POC Glucose 91 MG/DL (70 - 105) 01/17/19 17:14 Whole Bld Lactic Acid 1.13 mmol/L (0.60-1.99) 01/16/19 21:10 Calcium 9.1 mg/dL (8.6-10.3) 01/23/19 05:30 Total Bilirubin 0.3 mg/dL (0.3-1.0) 01/16/19 21:10 AST 13 U/L (13-39) 01/16/19 21:10 ALT 7 U/L (7-52) 01/16/19 21:10 Alkaline Phosphatase 61 U/L (34-104) 01/16/19 21:10 Creatine Kinase 47 U/L (30-223) 01/21/19 06:30 Troponin I 0.02 ng/mL (0.01-0.05) 01/17/19 15:01 C-Reactive Protein < 0.2 mg/dL (0.0-0.9) 01/21/19 06:30 Total Protein 6.2 gm/dL (6.0-8.3) 01/16/19 21:10 Albumin 3.8 gm/dL (4.2-5.5) L 01/16/19 21:10 Globulin 2.4 gm/dL 01/16/19 21:10 Albumin/Globulin Ratio 1.6 (1.0-1.8) 01/16/19 21:10 Triglycerides 48 mg/dL (<150) 01/17/19 07:05 Cholesterol 136 mg/dL (<200) 01/17/19 07:05 LDL Cholesterol Direct 65 mg/dL (75-193) L 01/17/19 07:05 HDL Cholesterol 54 mg/dL (23-92) 01/17/19 07:05 Vitamin B12 522 pg/mL (232-1245) 01/21/19 06:30 Folic Acid >20.0 ng/mL (>3.0) 01/21/19 06:30 TSH 0.55 uIU/ml (0.34-5.60) 01/21/19 06:30 Urine Source CLEAN C 01/16/19 20:40 Urine Color YELLOW 01/16/19 20:40 Urine Clarity CLEAR (CLEAR) 01/16/19 20:40 Urine pH 5.5 (4.6 - 8.0) 01/16/19 20:40 Ur Specific [place] 1.015 (1.005-1.030) 01/16/19 20:40 Urine Protein NEGATIVE mg/dL (NEGATIVE) 01/16/19 20:40 Urine Glucose (UA) NEGATIVE mg/dL (NEGATIVE) 01/16/19 20:40 Urine Ketones NEGATIVE mg/dL (NEGATIVE) 01/16/19 20:40 Urine Blood NEGATIVE (NEGATIVE) 01/16/19 20:40 Urine Nitrate NEGATIVE (NEGATIVE) 01/16/19 20:40 Urine Bilirubin NEGATIVE (NEGATIVE) 01/16/19 20:40 Urine Urobilinogen 0.2 E.U./dL (0.2 - 1.0) 01/16/19 20:40 Ur Leukocyte Esterase NEGATIVE (NEGATIVE) 01/16/19 20:40 Urine RBC NONE SEEN /hpf (0-5) 01/16/19 20:40 Urine WBC 0-2 /hpf (0-5) 01/16/19 20:40 Ur Epithelial Cells FEW /lpf (FEW) 01/16/19 20:40 Urine Bacteria FEW /hpf (NONE SEEN) 01/16/19 20:40 Urine Mucus FEW /lpf (FEW) 01/16/19 20:40 - Physical Exam Vitals and I&O: Vital Signs Temp 98.1 F 01/23/19 12:00 Pulse 69 01/23/19 12:00 Resp 18 01/23/19 12:00 BP 133/70 01/23/19 12:00 Pulse Ox 98 01/23/19 12:00 Intake & Output 01/22/19 01/23/19 01/23/19 18:59 06:59 18:59 Weight (lbs) 61.235 kg Other: # Voids 3 # Bowel Movements 1 Stool Characteristics Formed Formed Formed Brown Brown Brown Weight Source Bedscale Active Medications: Current Medications Acetaminophen (Tylenol) 650 mg PO Q6HR PRN PRN Reason: Pain (Mild) Stop: 03/18/19 12:41 Amlodipine Besylate (Norvasc) 5 mg PO DAILY [facility] Stop: 03/18/19 12:44 Last Admin: 01/23/19 08:45 Dose: Not Given Ascorbic Acid (Vitamin C) 500 mg PO DAILY [facility] Stop: 03/18/19 12:44 Last Admin: 01/23/19 08:45 Dose: 500 mg Docusate Sodium (Colace) 100 mg PO BID [facility] Stop: 03/18/19 16:59 Last Admin: 01/23/19 08:45 Dose: 100 mg Donepezil HCl (Aricept) 5 mg PO HS [facility] Stop: 03/18/19 20:59 Last Admin: 01/22/19 21:06 Dose: 5 mg Lisinopril (Zestril) 5 mg PO DAILY [facility] Stop: 03/18/19 12:44 Last Admin: 01/23/19 08:45 Dose: Not Given Lorazepam (Ativan) 0.5 mg PO Q4HR PRN; Protocol PRN Reason: Restlessness Stop: 03/23/19 17:31 Magnesium Hydroxide (Milk Of Magnesia) 30 ml PO Q6HR PRN PRN Reason: Constipation Stop: 03/18/19 12:41 Memantine (Namenda) 5 mg PO HS [facility] Stop: 03/18/19 20:59 Last Admin: 01/22/19 21:06 Dose: 5 mg Miscellaneous (Vte Chemical Prophylaxis Screen/ Admission) 1 ea [facility] PRN PRN PRN Reason: PROTOCOL Stop: 03/18/19 16:11 Multivitamins/Vitamin C (Theragran) 1 tab PO DAILY [facility] Stop: 03/18/19 12:44 Last Admin: 01/23/19 08:45 Dose: 1 tab Physical Exam: 88 y/o male patient's AMS improving. General: weak HEENT: NC/AT Neck: Supple, No JVD Lungs: CTAB Cardiovascular: RRR Abdomen: soft, non-tender Extremities: clear Neurological: no change Internal Medicine Assmt/Plan - Assessment Assessment: Hypertension. Altered mental status. Generalized weakness. Dementia. Osteoarthritis. Subarachnoid hemorrhage. Encephalopathy. - Plan Plan: Continuation of care. Monitor Labs. Continue present meds as directed. Monitor vitals, continue B/P meds. Monitor Diet/Nutritional support. Psych management per Psych. Pain Management. Physical therapy. Occupational therapy. Safety precaution. Supportive care. Fall precaution, frequent nursing rounds, and as needed restraints to prevent fall. Continue collaborating with consulting specialists, case management and nursing team. Will Monitor patient and continue current treatment plan as ordered. Nutritional Asmnt/Malnutr-PDOC - Dietary Evaluation Malnutrition Findings (Please click <Entered> for more info): Nutritional Asmnt/Malnutrition Start: 01/22/19 19: 13 Text: Status: Active Freq: Protocol: Document 01/22/19 19:13 [email or web address] (Rec: 01/22/19 19:24 [email or web address]) Nutritional Asmnt/Malnutrition Patient General Information Nutritional Screening Moderate Risk Diagnosis Altered mental status Pertinent Medical Hx/Surgical Hx Past medical hx of HTN and osteoarthritis Subjective Information Patient admitted for AMS with PMH of HTN. Visited patient at bedside who did not verbally respond to interview. Visual observation of patient missing many teeth. PO intake average of 95-100% x 5 days. Last BM x 4 today. Per Irma RN reported pt ate sides and avoided main entree. Recommended chopped diet due to pt dentition to help with PO intake. Reji score 20. Current Diet Order/ Nutrition Support 2 Gram Sodium Pertinent Medications Docusate, VitC, MTI, MOM PRN Pertinent Labs Hgb=11.9 L, Na 135L, BUN 27 H Nutritional Hx/Data Height 1.78 m Height (Calculated Centimeters) 177.8 Current Weight (lbs) 61.235 kg Weight (Calculated Kilograms) 61.2 Weight (Calculated Grams) 92777.0 [place] Body Weight 160 Body Mass Index (BMI) 19.3 Weight Status Approriate GI Symptoms Last BM Today x 4 Food Allergies No Skin Integrity/Comment: Will continue to monitor skin integrity. Current %PO Good (75-100%) Estimated Nutritional Goals BEE in Kcals: Using Current wt Calories/Kcals/Kg 25-30kcals/kg Kcals Calculated 1534-1830kcals/day Protein: Using Current wt Protein g/k.8-1g/kg body weight Protein Calculated 48-61g/day Fluid: ml 1534-1830kcals/day Nutritional Problem 1. Problem Problem Chewing/swallowing difficulty Etiology r/t missing many teeth Signs/Symptoms: aeb nurse's report of consuming sides and avoiding whole entre meats. Intervention/Recommendation Comments Recommend change current 2gm sodium, regular textured diet to a chopped diet to increase PO intake. Expected Outcomes/Goals Expected Outcomes/Goals Adequate oral intake to meet 75-100% of estimated nutrient needs during admission.
--- NOTE | 2019-01-23 22:21 | Progress Notes ---
DATE: 01/23/2019 SUBJECTIVE: Chart reviewed and the patient interviewed. Also, discussed the patient's condition with the staff and reviewed records and labs. The patient's affect is brighter. The patient is not agitated and not as confused. "I am trying to walk to exercise." The patient also is cooperative and compliant with taking his medications. Also, is sleeping better. Otherwise, the patient is denying any thoughts of suicide or homicide. ASSESSMENT: The patient is less agitated. TREATMENT PLAN: Continue monitoring behavior and current treatment and followup. JOB# [id number]
[2019-01-23 23:06] LABS: T4 FREE 1.31 ng/dL (0.82-1.77)
--- NOTE | 2019-01-31 00:35 | Discharge Summary ---
DATE OF DISCHARGE: 01/23/2019 HOSPITAL COURSE: The patient admitted on 01/17/2019, patient was discharged 01/23/2019, this 88-year-old female. The patient was admitted for failure to thrive, generalized weakness, hypertension and dementia. The patient had complete workup and GI workup as well as ____. The patient improved. The patient was in stable condition on 01/23/2019, was discharged to [facility] where I will be following the patient. CONDITION OF THE PATIENT ON DISCHARGE: Stable. MEDICATIONS, DIET AND ACTIVITY: See the order sheet. JOB# [id number]
== END 2019-01-23 17:10 | DRG 65 ==
LOC: ER 20:22 → TELE 01-17 05:40
PROVIDERS: ADMIT Internal Medicine; ATTEND Internal Medicine
DX: I60.9 Nontraumatic subarachnoid hemorrhage, unspecified (principal); G93.40 Encephalopathy, unspecified; Z68.1 Body mass index [BMI] 19.9 or less, adult; R62.7 Adult failure to thrive; I10 Essential (primary) hypertension; F03.90 Unspecified dementia, unspecified severity, without behavioral disturbance, psychotic disturbance, mood disturbance, and anxiety; M19.90 Unspecified osteoarthritis, unspecified site
CPT/HCPCS: 36415-UA; 70450-TC; 70498-TC; 71045-TC; 80048-TC; 80053-TC; 80061-TC; 81001-TC; 82085-90; 82550-TC; 82607-90; 82746-90; 82948-90; 83605; 84439-90; 84443-TC; 84484-TC; 85007-TC; 85025-TC; 86141-TC; 93005; J1644